=== PATIENT | male | born 1980 | race Caucasian/White ===

== ENCOUNTER 2019-10-19 09:07 | Outpatient (RCR) | payer MEDICAID, SELFPAY ==
[2019-10-19 09:48] VITALS: BP 147/97; PULSE 77; RESP 18; TEMP 37.1; O2SAT 98
== END 2019-11-08 23:59 | disposition home or self-care (01) ==
LOC: GILAB 09:07
PROVIDERS: Family Provider Internal Medicine; Visit Provider Internal Medicine
DX: D64.9 Anemia, unspecified (principal)
CPT/HCPCS: 96365; J1439

== ENCOUNTER 2019-12-21 08:40 | Outpatient (CLI) | payer MEDICAID, SELFPAY ==
[2019-12-21 09:20] VITALS: BP 139/85; PULSE 89; RESP 18; TEMP 37.1; O2SAT 97
[2019-12-21 09:22] VITALS: BMI 36.6
[2019-12-21] MEDS: ferric carboxy (IVPB) 750 MG in sodium chloride 0.9% (100 ml) 100 ML 345 MG IV (09:44)
== END 2019-12-21 08:41 | disposition home or self-care (01) ==
PROVIDERS: Family Provider Internal Medicine; Visit Provider Internal Medicine
DX: D64.9 Anemia, unspecified (principal)
CPT/HCPCS: 96365; J1439

== ENCOUNTER → 2020-06-29 08:53 | Day surgery (SDC) | payer MEDICAID, SELFPAY ==
[2020-06-29 09:21] VITALS: BP 123/80; PULSE 91; RESP 18; TEMP 36.5; O2SAT 98
[2020-06-29] MEDS: ferric carboxy (IVPB) 750 MG in sodium chloride 0.9% (100 ml) 100 ML 345 MG IV (09:34)
== END ==
PROVIDERS: PCP Internal Medicine; Visit Provider Internal Medicine
DX: D50.9 Iron deficiency anemia, unspecified (principal)
CPT/HCPCS: 96365; J1439

== ENCOUNTER → 2020-07-06 13:24 | Day surgery (SDC) | payer MEDICAID, SELFPAY ==
[2020-07-06 13:35] VITALS: BP 108/77; PULSE 76; RESP 18; TEMP 36.9; O2SAT 95
[2020-07-06] MEDS: ferric carboxy (IVPB) 750 MG in sodium chloride 0.9% (100 ml) 100 ML 125 MG IV (14:17)
== END ==
PROVIDERS: PCP Internal Medicine; Visit Provider Internal Medicine
DX: D50.9 Iron deficiency anemia, unspecified (principal)
CPT/HCPCS: 96365; 96366; J1439

== ENCOUNTER 2020-09-07 14:12 | Outpatient (CLI) | payer MEDICAID, SELFPAY ==
--- NOTE | 2020-09-07 14:24 | USCV_ITS ---
CristóbalSlick franco Age: 39 Gender: M : 1980 Exam Date: 09/07/2020 14:25 Ordering Phys: Edward Laird DO Technologist: Kemi De La Paz [place] [facility] [place]ication: SYSTOLIC MURMUR BP: / HR: 88 Rhythm: Sinus Technical Quality: Very technically difficult study MEASUREMENTS (Male / Female) Normal Values 2D ECHO LV Diastolic Diameter PLAX 2.6 cm 4.2 - 5.9 / 3.9 - 5.3 cm LV Systolic Diameter PLAX 2.0 cm LV Chamber Size 3.3 cm IVS Diastolic Thickness 1.8 cm 0.6 - 1.0 / 0.6 - 0.9 cm IVS Systolic Thickness 1.3 cm LVPW Diastolic Thickness 1.6 cm 0.6 - 1.0 / 0.6 - 0.9 cm LVPW Systolic Thickness 1.6 cm RV Chamber Size 2.9 cm LVOT Diameter 2.0 cm LV Ejection Fraction 2D Teich 43.6 % LV Ejection Fraction MOD 2C 68.8 % LV Ejection Fraction 2C AL 69.9 % LA Diameter 3.5 cm LA Width 1.4 cm LA Height 4.5 cm RA Width 3.2 cm RA Height 3.9 cm Aorta at Sinotubular Diameter 3.3 cm M-MODE LV Diastolic Diameter MM 3.4 cm 4.2 - 5.9 / 3.9 - 5.3 cm LV Systolic Diameter MM 1.9 cm LV Ejection Fraction MM Teich 76.1 % IVS Diastolic Thickness MM 1.8 cm 0.6 - 1.0 / 0.6 - 0.9 cm IVS Systolic Thickness MM 2.0 cm LVPW Diastolic Thickness MM 1.5 cm 0.6 - 1.0 / 0.6 - 0.9 cm LVPW Systolic Thickness MM 1.7 cm Aortic Annulus Diameter 2.8 cm LA Ao Ratio MM 1.1 MV E Point Septal Separation 0.3 cm DOPPLER AV Peak Velocity 149.0 cm/s LVOT Peak Velocity 121.3 cm/s AV Area Cont Eq vti 3.0 cm squared AV Area Cont Eq pk 2.6 cm squared MV Area PHT 5.5 cm squared Mitral E to A Ratio 1.3 MV E' Velocity 58.5 cm/s Mitral E to MV E' Ratio 14.2 Mitral E to LV E' Lateral Ratio 18.5 Mitral E to LV E' Septal Ratio 11.7 TR Peak Velocity 162.6 cm/s TR Peak Gradient 10.6 mmHg TR Mean Velocity 163.6 cm/s TR Mean Gradient 12.0 mmHg TR Velocity Time Integral 49.8 cm TV Peak E Velocity 63.0 cm/s Right Atrial Pressure 3.0 mmHg Pulmonary Artery Systolic Pressu 13.6 mmHg PV Peak Velocity 172.0 cm/s RV Acceleration Time 0.2 s RV Ejection Time 0.3 s RV AcT/ET 0.5 FINDINGS Left Ventricle Technically very difficult study with limited visualization of cardiac structures. Normal left ventricular size and grossly normal systolic function. Regional wall motion abnormalities cannot be assessed because of limited visualization.. Diastolic function is normal. Right Ventricle The right ventricle is normal in size and function. Right Atrium The right atrium is normal in size. Left Atrium The left atrium is normal in size. Mitral Valve Structurally normal mitral valve without significant stenosis or prolapse. There is no mitral regurgitation. Aortic Valve Grossly normal. No aortic stenosis is seen. There is no aortic regurgitation. Tricuspid Valve Grossly normal. Mild tricuspid regurgitation. RVSP is 10- 15mmHg. Pulmonic Valve Not well-visualized Pericardium Normal pericardium without effusion. Aorta Normal ascending aorta dimension. CONCLUSIONS This is technically limited study. Limited visualization of cardiac structures. LV systolic function is grossly normal. Normal diastolic function. There is mild tricuspid regurgitation seen. Pulmonic valve not well visualized. Otherwise no significant valvular heart disease. No comparison studies are available. Darryl Pimentel MD (Electronically Signed) Final Date: 17 September 2020 09:35 S
== END 2020-09-07 14:13 | disposition home or self-care (01) ==
LOC: RAD 14:15
PROVIDERS: PCP Internal Medicine; Visit Provider Internal Medicine
DX: R01.1 Cardiac murmur, unspecified (principal)
CPT/HCPCS: 93306

== ENCOUNTER 2020-11-11 00:44 | Emergency (ER) | payer MEDICAID, SELFPAY ==
[2020-11-11 01:14] VITALS: BP 123/84; PULSE 94; RESP 16; TEMP 36.6; O2SAT 95; BMI 36.6
--- NOTE | 2020-11-11 01:40 | CTR_ITS ---
PROCEDURE INFORMATION: Exam: CT Abdomen And Pelvis Without Contrast Exam date and time: 11/11/2020 2:08 AM Age: 40 years old Clinical indication: Abdominal pain; Other: Julio; Prior surgery; Surgery date: 6+ months; Surgery type: Colostomy; Patient HX: C/O b flank/lbp w hematuria; Additional info: Back pain hematuria TECHNIQUE: Imaging protocol: Computed tomography of the abdomen and pelvis without contrast. Radiation optimization: All CT scans at this facility use at least one of these dose optimization techniques: automated exposure control; mA and/or kV adjustment per patient size (includes targeted exams where dose is matched to clinical indication); or iterative reconstruction. COMPARISON: CT abdomen pelvis w con* [id number] 03/16/2018 11:21 PM RADIATION DOSE METRICS: Total DLP (mGy-cm): 1889.98 FINDINGS: Liver: Normal. No mass. Gallbladder and bile ducts: Hyperdensities are seen in the gallbladder neck compatible with tiny gallstones. Pancreas: Normal. No ductal dilation. Spleen: Normal. No splenomegaly. Adrenal glands: Normal. No mass. Kidneys and ureters: There is a 2.5 mm nonobstructing right renal calculus present. Several nonobstructing renal calculi are seen on the left. These measure up to 4 mm in diameter. There is a 2.6 mm minimally obstructing calculus at the level of the left ureteropelvic junction. The there is a 1.7 cm hypoattenuation cystic mass seen within the lower pole of the left kidney. Stomach and bowel: There is a large hiatal hernia present measuring 14 cm in transverse dimension containing the proximal and mid stomach. Status post sigmoidectomy with a colostomy seen in the left anterior flank. Appendix: No evidence of appendicitis. Intraperitoneal space: Unremarkable. No free air. No significant fluid collection. Vasculature: Unremarkable. No abdominal aortic aneurysm. Lymph nodes: Unremarkable. No enlarged lymph nodes. Urinary bladder: Unremarkable as visualized. Reproductive: Unremarkable as visualized. Bones/joints: There is prominent rotoscoliosis of the axial skeleton. Soft tissues: There is a right inguinal hernia containing fat. CT/CT kidney stone [id number] IMPRESSION: 1. Minimally obstructing 2.6 mm calculus at the level of the left ureteropelvic junction. 2. There are bilateral nonobstructing renal calculi. 3. Simple appearing 1.7 cm cyst in the lower pole of the left kidney. No further workup needed. 4. Small right inguinal hernia containing fat 5. Tiny gallstones without evidence of cholecystitis 6. Large hiatal hernia containing the proximal and mid stomach Radiation Dose CTDIVOL = (mGy): DLP = 1889.98 (mGy-cm)
[2020-11-11 02:36] LABS: Basophils % 0.4 %; Eosinophils % 0.6 %; Hematocrit 42.3 % (42.0-52.0); Hemoglobin 13.3 g/dL (11.7-16.6); Lymphocytes # 0.9 10^3/uL (0.8-4.8); Lymphocytes % 12.3 %; Mean Corpuscular HGB Conc 31.4 g/dL (30.0-36.0); Mean Corpuscular Volume 92.4 fL (80-94); Mean Platelet Volume 9.5 fL (7.4-10.4); Monocytes # 0.3 10^3/uL (0.2-0.9); Monocytes % 4.2 %; Neutrophils # 5.68 10^3/uL (1.8-7.7); Neutrophils % 82.2 %; Nucleated Red Blood Cells % 0 %; Platelet Count 278 10^3/cmm (130-400); Red Blood Count 4.58 10^6/uL (4.1-5.3); Red Cell Distribution Width 13.2 % (12.1-15.1); White Blood Count 6.9 10^3/uL (4.0-10.0)
[2020-11-11 02:58] LABS: Alanine Aminotransferase 38 U/L (0-41); Albumin Level 4.1 g/dL (3.5-5.2); Alkaline Phosphatase 71 IU/L (40-130); Anion Gap 11.9 (5-19); Aspartate Amino Transferase 22 U/L (0-40); Blood Urea Nitrogen 9 mg/dL (6-20); C Reactive Protein 8.1 mg/L (0.0-4.9); Calcium 9.8 mg/dL (8.5-10.5); Carbon Dioxide 24 mmol/L (22-29); Chloride 107 mmol/L (98-107); Globulin 3.2 g/dL (1.3-4.6); Glomerular Filtration Rate 535.7 mL/min (90-130); Glucose 133 mg/dL (65-115); Lipase 29 U/L (13-60); Osmolality Calculated 289 mOsm/kg (285-295); Potassium 3.9 mmol/L (3.5-5.1); Sodium 139 mmol/L (136-145); Total Bilirubin 0.3 mg/dL (0.15-1.2); Total Protein 7.3 g/dL (6.6-8.7)
[2020-11-11 03:16] LABS: Specific Gravity, Urine 1.015 (1.005-1.030); Urine Color Yellow (Yellow); pH Urine 5 (5-7)
[2020-11-11 03:17] LABS: Add Urine Microscopic? YES; Bilirubin Urine Neg (Negative); Blood Urine 3+ (Negative); Glucose Urine UA Norm (Normal); Ketones Urine Negative (Negative); Leukocyte Esterase Urine Negative (Negative); Nitrate Urine Negative (Negative); Protein Urine Neg (Negative); Urobilinogen Urine Norm (Negative)
[2020-11-11 03:30] LABS: Add Urine Culture? Yes; Amorphous Sediment Urine 2+ /hpf; Bacteria Urine TRACE /hpf; RBC Urine >100 /hpf (0-2); Squamous Epithelial Cell Urine 0-4 /hpf (0-5); WBC Urine 0-4 /hpf (0-5)
--- NOTE | 2020-11-11 04:12 | ED_ITS ---
HPI - Male Genitourinary General: Chief complaint: Urogenital-Male Stated complaint: lower back pain/blood in urine Time Seen by Provider: 11/11/20 01:57 History of Present Illness: HPI Narrative: 40-year-old wheelchair-bound male presenting with left-sided lower back pain and hematuria. He noticed blood in his urine today, followed by the development of lower back pain. No fever. No vomiting. He was nauseated when the pain was worse. He is essentially pain- free now. MD Complaint: other Onset (ago): hour(s) Duration: constant and now resolved Location: left flank Radiation: left testicle Quality: aching Relieving factors: none Exacerbating factors: none Context: other Associated symptoms: Reports hematuria and nausea; Deny fevers/chills, rash, swelling, urinary retention or vomiting Review of Systems Const: Denies: fever(s) or chills Card: Denies: chest pain or palpitations Resp: Denies: dyspnea, productive cough or non-productive cough GI: Reports: nausea; Denies: vomiting : Reports: hematuria Neuro: Denies: headache(s) or confusion Physical Exam Const: COMMON NORMALS: no acute distress, patient oriented x3 and alert HENMT: COMMON NORMALS: normocephalic HEAD & SCALP: normocephalic Resp: COMMON NORMALS: normal respiratory effort, No use of accessory muscles and clear to auscultation bilaterally AUSCULTATION: clear to auscultation bilaterally Cardio: COMMON NORMALS: regular rate and regular rhythm RATE: regular rate RHYTHM: regular rhythm HEART SOUNDS: Murmur heart sound present GI: COMMON NORMALS: Normal to inspection, nondistended, normoactive bowel sounds present, Soft to palpation and no masses PALPATION: Yes Soft to palpation Back/Pelvis: GENERAL BACK: Yes CVA tenderness CVA tenderness: left (Mild), No mass and No warmth Neuro: COMMON NORMALS: patient oriented x3 SENSORIUM/ORIENTATION: Yes alert Course Vital Signs: Vital signs: Vital Signs Temperature 97.9 F 11/11/20 01:14 Pulse Rate 94 11/11/20 01:14 Respiratory Rate 16 11/11/20 01:14 Blood Pressure 123/84 11/11/20 01:14 Pulse Oximetry 95 11/11/20 01:14 MDM - Male MDM Narrative: Medical decision making narrative: White blood cell count 6.9. Hemoglobin 13.3. CT is reveals a left-sided UPJ 2.6 mm stone with minimal hydronephrosis. His pain is controlled at this point. No evidence of infection on urinalysis. He will be allowed home with antiemetics and pain medication. Lab Data: Labs: Lab Results 11/11/20 11/11/20 11/11/20 Range/Units 02:30 02:30 02:50 WBC 6.9 (4.0-10.0) 10^3/ uL RBC 4.58 (4.1-5.3) 10^6/u L Hgb 13.3 (11.7-16.6) g/dL Hct 42.3 (42.0-52.0) % MCV 92.4 (80-94) fL MCH 29.0 (28.0-34.0) pg MCHC 31.4 (30.0-36.0) g/dL RDW 13.2 (12.1-15.1) % Plt Count 278 (130-400) 10^3/c mm MPV 9.5 (7.4-10.4) fL Neut % (Auto) 82.2 % Lymph % (Auto) 12.3 % Lumpkin % (Auto) 4.2 % Eos % (Auto) 0.6 % Baso % (Auto) 0.4 % Neut # (Auto) 5.68 (1.8-7.7) 10^3/u L Lymph # (Auto) 0.9 (0.8-4.8) 10^3/u L Lumpkin # (Auto) 0.3 (0.2-0.9) 10^3/u L Eos # (Auto) 0.0 (0.0-0.8) 10^3/u L Baso # (Auto) 0.0 (0.0-0.1) 10^3/u L Nucleated RBC % (a uto) 0 % Nucleated RBCs # 0.0 /100WBC Sodium 139 (136-145) mmol/L Potassium 3.9 (3.5-5.1) mmol/L Chloride 107 (98-107) mmol/L Carbon Dioxide 24 (22-29) mmol/L Anion Gap 11.9 (5-19) BUN 9 (6-20) mg/dL Creatinine 0.2 L (0.7-1.2) mg/dL GFR Calculation 535.7 H (90-130) mL/min Glucose 133 H (65-115) mg/dL Calculated Osmolal ity 289 (285-295) mOsm/k g Calcium 9.8 (8.5-10.5) mg/dL Total Bilirubin 0.3 (0.15-1.2) mg/dL AST 22 (0-40) U/L ALT 38 (0-41) U/L Alkaline Phosphata se 71 (40-130) IU/L C-Reactive Protein 8.1 H (0.0-4.9) mg/L Total Protein 7.3 (6.6-8.7) g/dL Albumin 4.1 (3.5-5.2) g/dL Globulin 3.2 (1.3-4.6) g/dL Lipase 29 (13-60) U/L Urine Color Yellow (Yellow) Urine Appearance Sl cloudy A (CLEAR) Urine pH 5 (5-7) Ur Specific Gravit y 1.015 (1.005-1.030) Urine Protein Neg (Negative) Urine Glucose (UA) Norm (Normal) Urine Ketones Negative (Negative) Urine Blood 3+ H (Negative) Urine Nitrate Negative (Negative) Urine Bilirubin Neg (Negative) Urine Urobilinogen Norm (Negative) mg/dL Ur Leukocyte Lorin ase Negative (Negative) Urine RBC >100 H (0-2) /hpf Urine WBC 0-4 H (0-5) /hpf Ur Squamous Epith Cells 0-4 H (0-5) /hpf Amorphous Sediment 2+ /hpf Urine Bacteria Trace (NONE) /hpf Discharge Plan Discharge Patient Disposition: Home Clinical Impression: Ureterolithiasis Condition: Stable Prescriptions: New Zofran 4 mg tablet 4 mg PO Q6H PRN (Reason: nausea and vomiting) Qty: 10 RF: 0 Percocet 7.5-325 mg tablet 1 tab PO Q6H PRN (Reason: pain) Qty: 10 RF: 0 Flomax 0.4 mg capsule 0.4 mg PO DAILY Qty: 10 RF: 0 No Action pantoprazole 20 mg Tablet,Delayed Release (Dr/Ec) 20 mg PO DAILY PRN (Reason: Gastric Reflux) RF: 0 Discharge Orders: Discharge ED (Routine); Ordered 11/11/20 Ordered By: Dave Murphy Referrals: Kevin Chakraborty MD [Physician] - 1-3 days Edward Laird DO [Primary Care Provider] - Discharge Diet: Advance as tolerated Discharge Activity: Increase activity as tolerated Patient Instructions: Kidney Stones (ED), Opioid Safety Activity Restrictions/Additional Instructions: Return for fever greater than 100, worsening pain despite treatment, vomiting liquids or medications, other concerning symptoms. Call the urology clinic Thursday for an appointment this coming week. Coding Level of Care Code ED Medical Assistant Instructor for Malik Richards
[2020-11-11 04:27] VITALS: PULSE 96; RESP 16; O2SAT 95
== END 2020-11-11 04:28 | disposition home or self-care (01) ==
PROVIDERS: Emergency Provider Emergency Medicine; PCP Internal Medicine
DX: N20.1 Calculus of ureter (principal)
CPT/HCPCS: 36415; 74176; 80053; 81001; 83690; 85025; 86140; 87086; 99283

== ENCOUNTER → 2021-08-27 13:24 | Day surgery (SDC) | payer MEDICAID, SELFPAY ==
[2021-08-27 13:51] VITALS: BP 140/68; PULSE 108; RESP 18; TEMP 36.3; O2SAT 97
[2021-08-27] MEDS: iron sucrose 200 MG in sodium chloride 0.9% (100 ml) 100 ML 220 MG IV (14:08)
== END ==
PROVIDERS: PCP Internal Medicine; Visit Provider Internal Medicine
DX: D50.9 Iron deficiency anemia, unspecified (principal)
CPT/HCPCS: 96365; J1756

== ENCOUNTER → 2021-09-10 13:28 | Day surgery (SDC) | payer MEDICAID, SELFPAY ==
[2021-09-10 13:52] VITALS: BP 118/68; PULSE 99; RESP 18; TEMP 36.5; O2SAT 97; BMI 36.6
[2021-09-10] MEDS: iron sucrose 200 MG in sodium chloride 0.9% (100 ml) 100 ML 220 MG IV (13:55)
== END ==
PROVIDERS: PCP Internal Medicine; Visit Provider Internal Medicine
DX: D50.9 Iron deficiency anemia, unspecified (principal)
CPT/HCPCS: 96365; J1756

== ENCOUNTER → 2021-09-17 13:20 | Day surgery (SDC) | payer MEDICAID, SELFPAY ==
[2021-09-17 13:38] VITALS: BP 122/73; PULSE 92; RESP 18; TEMP 36.4; O2SAT 96
[2021-09-17] MEDS: iron sucrose 200 MG in sodium chloride 0.9% (100 ml) 100 ML 220 MG IV (13:52)
== END ==
PROVIDERS: PCP Internal Medicine; Visit Provider Internal Medicine
DX: D50.9 Iron deficiency anemia, unspecified (principal)
CPT/HCPCS: 96365; J1756

== ENCOUNTER → 2021-09-24 13:32 | Day surgery (SDC) | payer MEDICAID, SELFPAY ==
[2021-09-24] MEDS: iron sucrose 200 MG in sodium chloride 0.9% (100 ml) 100 ML 220 MG IV (14:09)
[2021-09-24 14:10] VITALS: BP 120/82; PULSE 87; RESP 18; TEMP 36.3; O2SAT 98
== END ==
PROVIDERS: PCP Internal Medicine; Visit Provider Internal Medicine
DX: D50.9 Iron deficiency anemia, unspecified (principal)
CPT/HCPCS: 96365; J1756

== ENCOUNTER → 2021-10-08 10:19 | Day surgery (SDC) | payer MEDICAID, SELFPAY ==
[2021-10-08] MEDS: iron sucrose 200 MG in sodium chloride 0.9% (100 ml) 100 ML 220 MG IV (10:44)
[2021-10-08 10:46] VITALS: BP 131/70; PULSE 94; RESP 18; TEMP 36.1; O2SAT 97
== END ==
PROVIDERS: PCP Internal Medicine; Visit Provider Internal Medicine
DX: D50.9 Iron deficiency anemia, unspecified (principal)
CPT/HCPCS: 96365; J1756

== ENCOUNTER → 2021-11-20 11:59 | Day surgery (SDC) | payer MEDICAID, SELFPAY ==
[2021-11-20 12:07] VITALS: BP 124/74; PULSE 86; RESP 18; TEMP 36.5; O2SAT 98
[2021-11-20] MEDS: iron sucrose 200 MG in sodium chloride 0.9% (100 ml) 100 ML 220 MG IV (12:25)
== END ==
PROVIDERS: PCP Internal Medicine; Visit Provider Internal Medicine
DX: D50.9 Iron deficiency anemia, unspecified (principal)
CPT/HCPCS: 96365; J1756

== ENCOUNTER → 2021-11-27 12:19 | Day surgery (SDC) | payer MEDICAID, SELFPAY ==
[2021-11-27 12:00] VITALS: BP 120/82; PULSE 81; RESP 18; TEMP 36.6; O2SAT 97
[2021-11-27] MEDS: iron sucrose 200 MG in sodium chloride 0.9% (100 ml) 100 ML 220 MG IV (12:47)
== END ==
PROVIDERS: PCP Internal Medicine; Visit Provider Internal Medicine
DX: D50.9 Iron deficiency anemia, unspecified (principal)
CPT/HCPCS: 96365; J1756

== ENCOUNTER 2021-11-28 14:22 | Outpatient (CLI) | payer MEDICAID, SELFPAY ==
--- NOTE | 2021-11-28 16:43 | ONC CON_ITS ---
Dr. Mercado New Patient Note Patient: Slick Roca Unit #: [id number]: 1980 Dicatated By: Elizabet Mercado M.D.Date of Visit: Nov 28, 2021 Onc MED New Patient/Consult Referring Physician: Faraz CORREA MD History of Present Illness: Mr. Slick Roca, is a 41-year-old male with history of arthrogryposis multiplex congenita, status post colostomy for chronic constipation, and longstanding history of iron deficiency anemia, as per patient he has taken oral iron off and on on many occasion with good response but recently being treated with parenteral iron with Venofer, as per patient in August or September 2021 he received weekly Venofer x5 and then a month after in the first week of November 2021 he was started on weekly Venofer again and planning to give him 5 weekly doses. As lab work-up done on November 08, 2021 showed iron saturation 6%, iron 23 TIBC 366 ferritin 7 but CBC showed hemoglobin was 10.9 g compared to 8.6 g on August 19, 2021, hematocrit 35.4 platelets 310,000 white blood count 5.4 MCV 75.2. Patient has and is tolerating parenteral iron well otherwise Patient said he had EGD and colonoscopy done about 5 6 years ago at that time he was told about hiatal hernia and no evidence of gross bleeding. Patient also has history of colostomy bag placement at age 8-year for chronic constipation. Patient denies any shortness of breath or palpitation at rest denies any weakness or fatigue, as per patient whenever his hemoglobin goes down, usually he sleeps a lot. Because of his congenital abnormalities, patient move around in a motorized wheelchair. Patient has history of dark-colored stools off and on fresh blood in the colostomy bag probably from the colostomy stoma. No night sweats, no recurrent fever. Past Medical History: Mr. Roca's medical history consists of arthrogryposis multiplex congenita, colonic polyps, gastroesophageal reflux disease, and kidney stones. Past Surgical History: Mr. Roca's surgical/procedural history consists of colostomy, Covid vaccine #2 - Moderna in 2020, and Covid vaccine #1 - Moderna in 2020. Medications: Daily Vitamin 1 Tablet Oral daily Allergies: No Known Allergies. Social History: Mr. Roca is and he is a disabled. Mr. Roca has never smoked. He has no history of drinking. Family History: His paternal grandmother is : metastatic lung cancer at age 60. Review Of Symptoms: Review of Systems is not available for this patient. Vital Signs: Performed on Nov 28, 2021 15:25: 0, 0, 36.58 (HIGH), 1.91 sq.m, 62.00 in, 95 % (LOW), 88 /min, 16 /min, 93/47 mm(hg), 98.4 F, and 200 lbs (HIGH). Performance Status: 4 - Completely disabled, totally confined to bed or chair. Cannot carry on any self-care. (ECOG) Physical Examination: ENMT - No mouth sores, no thrush, no jaundice, Respiratory - On limited exam Lungs are clear to auscultation, Cardiovascular - Regular rate and rhythm of heart, Abdomen - Soft, bowel sounds present colostomy site clean, Extremities - Congenital deformities involving upper and lower extremities. Lab/Imaging: Most recent lab results are not available for this patient. Impression: Microcytic, normochromic anemia probably due to iron deficiency due to chronic GI blood loss plus minus malabsorption status post 3 units of packed RBCs on 07/01/2017 with good response now on ferrous sulfate one tablet 3 times a day since 07/02/2017. And B12 injection every weeks ???2. Status post EGD on 07/01/2017 showed large hiatal hernia otherwise no abnormality On Venofer weekly x5 in August or September 2021 and then again started first week of November 2021, tolerating well Congenital skeletal abnormalities wheelchair-bound. Status post colon resection now with colostomy at age 8 due to obstruction. Plan: Discussed with patient regarding his labs from November 08, 2021 which showed significant improvement in his hemoglobin, 10.9 g versus 8.6 g prior to parenteral iron with Venofer. And as per patient second round of 5 weekly dose of Venofer started in first week of November 2021 and he will get total of 5 doses. Etiology of his iron deficiency anemia, is most likely due to chronic blood loss either from colostomy stoma site or upper GI, hiatal hernia or peptic ulcer disease and possibility of small bowel AVMs causing chronic blood loss cannot be ruled out. At this point, we will recommend EGD and colonoscopy via colostomy to rule out underlying malignancy or chronic source of blood loss if unremarkable, will recommend small bowel capsule endoscopy to rule out small bowel AVMs causing chronic blood loss. As patient is receiving parenteral iron with his PMD, we will recommend PMD to get EGD and colonoscopy done, as mentioned above, if normal then consider small bowel capsule endoscopy either in [place], [place] or in [facility]. We will see him on as-needed basis. As with parenteral iron supplements, and management of chronic blood loss, his iron deficiency anemia should resolve. Signed By: Elizabet Mercado M.D. <<Signature on File>>
== END 2021-11-28 14:23 | disposition home or self-care (01) ==
LOC: ONCMED 14:23 → RAD 14:25 → ONCMED 14:51
PROVIDERS: PCP Internal Medicine; Visit Provider Internal Medicine Hematology & Oncology
DX: D50.9 Iron deficiency anemia, unspecified (principal); Z87.19 Personal history of other diseases of the digestive system; K44.9 Diaphragmatic hernia without obstruction or gangrene; Q79.9 Congenital malformation of musculoskeletal system, unspecified; Z99.3 Dependence on wheelchair; Z93.3 Colostomy status
CPT/HCPCS: 85025; 99204

== ENCOUNTER → 2021-12-04 12:17 | Day surgery (SDC) | payer MEDICAID, SELFPAY ==
[2021-12-04] MEDS: iron sucrose 200 MG in sodium chloride 0.9% (100 ml) 100 ML 220 MG IV (12:50)
[2021-12-04 12:51] VITALS: BP 130/73; PULSE 84; RESP 18; TEMP 36.6; O2SAT 97
== END ==
PROVIDERS: PCP Internal Medicine; Visit Provider Internal Medicine
DX: D50.9 Iron deficiency anemia, unspecified (principal)
CPT/HCPCS: 96365; J1756

== ENCOUNTER → 2021-12-11 12:11 | Day surgery (SDC) | payer MEDICAID, SELFPAY ==
[2021-12-11] MEDS: iron sucrose 200 MG in sodium chloride 0.9% (100 ml) 100 ML 220 MG IV (12:35)
[2021-12-11 12:36] VITALS: BP 130/84; PULSE 88; RESP 18; TEMP 36.5; O2SAT 97
== END ==
PROVIDERS: PCP Internal Medicine; Visit Provider Internal Medicine
DX: D50.9 Iron deficiency anemia, unspecified (principal)
CPT/HCPCS: 96365; J1756

== ENCOUNTER → 2021-12-25 13:10 | Day surgery (SDC) | payer MEDICAID, SELFPAY ==
[2021-12-25] MEDS: iron sucrose 200 MG in sodium chloride 0.9% (100 ml) 100 ML 220 MG IV (13:30)
[2021-12-25 13:44] VITALS: BP 111/88; PULSE 98; RESP 18; TEMP 36.8; O2SAT 94
== END ==
PROVIDERS: PCP Internal Medicine; Visit Provider Internal Medicine
DX: D50.9 Iron deficiency anemia, unspecified (principal)
CPT/HCPCS: 96365; J1756

== ENCOUNTER → 2022-02-21 09:02 | Day surgery (SDC) | payer MEDICAID, SELFPAY ==
[2022-02-21 09:21] VITALS: BP 104/75; PULSE 83; RESP 18; TEMP 36.5; O2SAT 97
[2022-02-21] MEDS: ferric carboxy (IVPB) 750 MG in sodium chloride 0.9% (100 ml) 100 ML 345 MG IV (09:22)
== END ==
PROVIDERS: PCP Internal Medicine; Visit Provider Internal Medicine
DX: D50.9 Iron deficiency anemia, unspecified (principal)
CPT/HCPCS: 96365; J1439

== ENCOUNTER → 2022-02-28 09:22 | Day surgery (SDC) | payer MEDICAID, SELFPAY ==
[2022-02-28] MEDS: ferric carboxy (IVPB) 750 MG in sodium chloride 0.9% (100 ml) 100 ML 345 MG IV (09:41)
[2022-02-28 09:42] VITALS: BP 141/87; PULSE 86; RESP 18; TEMP 36.3; O2SAT 96
== END ==
PROVIDERS: PCP Internal Medicine; Visit Provider Internal Medicine
DX: D50.9 Iron deficiency anemia, unspecified (principal)
CPT/HCPCS: 96365; J1439

== ENCOUNTER 2022-11-30 16:13 | Emergency (ER) | payer MEDICAID, SELFPAY ==
[2022-11-30 16:32] VITALS: BP 103/73; PULSE 97; TEMP 37.1; O2SAT 92; BMI 36.6
[2022-11-30 18:04] LABS: Add Urine Microscopic? NO; Charge for UA Resulting for Rev
[2022-11-30 18:08] LABS: Bilirubin Urine Neg (Negative); Blood Urine Neg (Negative); Glucose Urine UA Norm (Normal); Ketones Urine Negative (Negative); Leukocyte Esterase Urine Negative (Negative); Nitrate Urine Negative (Negative); Protein Urine Neg (Negative); Specific Gravity, Urine 1.005 (1.005-1.030); Urine Appearance Clear (CLEAR); Urine Color Yellow (Yellow); Urobilinogen Urine Norm (Negative); pH Urine 7 (5-7)
--- NOTE | 2022-11-30 19:53 | CTR_ITS ---
PROCEDURE INFORMATION: Exam: CT Abdomen And Pelvis Without Contrast Exam date and time: 11/30/2022 8:47 PM Age: 42 years old Clinical indication: Abdominal pain; Flank; Left; Additional info: L flank pain TECHNIQUE: Imaging protocol: Computed tomography of the abdomen and pelvis without contrast. Radiation optimization: All CT scans at this facility use at least one of these dose optimization techniques: automated exposure control; mA and/or kV adjustment per patient size (includes targeted exams where dose is matched to clinical indication); or iterative reconstruction. REPORTING DATA: Count of CT and Cardiac NM exams in prior 12 months: This patient has received 0 known CTs and 0 known cardiac nuclear medicine studies in the 12 months prior to the current study. COMPARISON: CT kidney stone [id number] 11/11/2020 3:16 AM RADIATION DOSE METRICS: Total DLP (mGy-cm): 1324.61 FINDINGS: Lungs: Left lower lobe atelectasis versus infiltrate. Pleural spaces: Trace left pleural effusion. Liver: Hepatic steatosis. Gallbladder and bile ducts: Cholelithiasis. Pancreas: Normal. No ductal dilation. Spleen: Normal. No splenomegaly. Adrenal glands: Normal. No mass. Kidneys and ureters: Left ureterovesical junction 6 mm calculus with moderate hydronephrosis and hydroureter. Bilateral punctate nonobstructing renal calyceal stones. Left kidney cyst similar to prior exam, negative for follow up advised. Left-sided ostomy. Stomach and bowel: Large hiatal hernia. Appendix: No evidence of appendicitis. Intraperitoneal space: Unremarkable. No free air. No significant fluid collection. Vasculature: Unremarkable. No abdominal aortic aneurysm. Lymph nodes: Unremarkable. No enlarged lymph nodes. Urinary bladder: Unremarkable as visualized. Reproductive: Unremarkable as visualized. Bones/joints: Unremarkable. No acute fracture. Soft tissues: Unremarkable. CT/CT kidney stone [id number] IMPRESSION: 1. Left ureterovesical junction 6 mm calculus with moderate hydronephrosis and hydroureter. 2. Bilateral punctate nonobstructing renal calyceal stones. 3. Trace left pleural effusion. 4. Left lower lobe atelectasis versus infiltrate. 5. Hepatic steatosis. 6. Cholelithiasis. 7. Left kidney cyst similar to prior exam, negative for follow up advised. 8. Large hiatal hernia. 9. Left-sided ostomy.
--- NOTE | 2022-11-30 20:52 | ED_ITS ---
HPI - Abdominal Pain General: Chief Complaint: Abdominal Pain Stated Complaint: urinary pain Time Seen by Provider: 11/30/22 19:19 History of Present Illness: 42-year-old wheelchair-bound male presenting with intermittent left flank pain. He has a history of kidney stones. He is in no pain currently, but gets intermittent pain on and off that is quite significant. He gets nauseated with the pain. He has not vomited. He has had some loose stool in his colostomy, that appears darker than normal, but is taking iron supplementation. Course Vital Signs: Vital signs: Vital Signs Temperature 98.7 F 11/30/22 16:32 Pulse Rate 97 11/30/22 16:32 Blood Pressure 103/73 11/30/22 16:32 Pulse Oximetry 92 11/30/22 16:32 Oxygen Delivery Me thod Room Air 11/30/22 16:32 MDM - Abdominal Pain Medical Decision Making 42-year-old male. He has no pain currently, but has been having intermittent left flank pain. His hemoglobin is 7. White blood cell count is 9.5. He states that he was supposed to get an iron infusion set up, but has not heard from his doctor about this. He definitely needs it. He was told that he is on the verge of needing a transfusion. We will ask case management to help coordinate with his PCP and get his iron infusion set up. He needs a repeat CBC in a few days. Acutely, he has a left UVJ 6 mm calculus. There are some hydronephrosis and hydroureter associated. He can likely pass this on his own. We will set him up as an outpatient with urology follow-up in case intervention is needed. He will be prescribed Flomax, Percocet, and Zofran. There is no evidence of infection. He knows to return for worsening Lab Data 11/30/22 21:10 11/30/22 21:10 Labs/Radiology: Radiology Impressions Abdomen/Pelvis CT 11/30/22 19:53 IMPRESSION: 1. Left ureterovesical junction 6 mm calculus with moderate hydronephrosis and hydroureter. 2. Bilateral punctate nonobstructing renal calyceal stones. 3. Trace left pleural effusion. 4. Left lower lobe atelectasis versus infiltrate. 5. Hepatic steatosis. 6. Cholelithiasis. 7. Left kidney cyst similar to prior exam, negative for follow up advised. 8. Large hiatal hernia. 9. Left-sided ostomy. Laboratory Results WBC 9.5 10^3/uL (4.0-10.0) 11/30/22 21:10 RBC 2.96 10^6/uL (4.1-5.3) L 11/30/22 21:10 Hgb 6.9 g/dL (11.7-16.6) L 11/30/22 21:10 Hct 24.4 % (42.0-52.0) L 11/30/22 21:10 MCV 82.4 fl (80-94) 11/30/22 21:10 MCH 23.3 pg (28.0-34.0) L 11/30/22 21:10 MCHC 28.3 g/dL (30.0-36.0) L 11/30/22 21:10 RDW 16.3 % (12.1-15.1) H 11/30/22 21:10 Plt Count 352 10^3/cmm (130-400) 11/30/22 21:10 MPV 10.5 fL (7.4-10.4) H 11/30/22 21:10 Neut % (Auto) 78.4 % 11/30/22 21:10 Lymph % (Auto) 12.3 % 11/30/22 21:10 Waller % (Auto) 6.2 % 11/30/22 21:10 Eos % (Auto) 1.3 % 11/30/22 21:10 Baso % (Auto) 0.5 % 11/30/22 21:10 Neut # (Auto) 7.43 10^3/uL (1.8-7.7) 11/30/22 21:10 Lymph # (Auto) 1.2 10^3/uL (0.8-4.8) 11/30/22 21:10 Waller # (Auto) 0.6 10^3/uL (0.2-0.9) 11/30/22 21:10 Eos # (Auto) 0.1 10^3/uL (0.0-0.8) 11/30/22 21:10 Baso # (Auto) 0.1 10^3/uL (0.0-0.1) 11/30/22 21:10 Nucleated RBC % (auto) 0.4 % 11/30/22 21:10 Nucleated RBCs # 0.0 /100WBC 11/30/22 21:10 Sodium 133 mmol/L (136-145) L 11/30/22 21:10 Potassium 4.0 mmol/L (3.5-5.1) 11/30/22 21:10 Chloride 100 mmol/L (98-107) 11/30/22 21:10 Carbon Dioxide 22 mmol/L (22-29) 11/30/22 21:10 Anion Gap 15.0 (5-19) 11/30/22 21:10 BUN 7 mg/dL (6-20) 11/30/22 21:10 Creatinine 0.4 mg/dL (0.7-1.2) L 11/30/22 21:10 GFR Calculation 238.3 mL/min (90-130) H 11/30/22 21:10 Glucose 76 mg/dL (65-115) 11/30/22 21:10 Calculated Osmolality 273 mOsm/kg (285-295) L 11/30/22 21:10 Calcium 8.8 mg/dL (8.5-10.5) 11/30/22 21:10 Total Bilirubin 0.4 mg/dL (0.15-1.2) 11/30/22 21:10 AST 12 U/L (0-40) 11/30/22 21:10 ALT 16 U/L (0-41) 11/30/22 21:10 Alkaline Phosphatase 67 U/L (40-130) 11/30/22 21:10 Total Protein 7.0 g/dL (6.6-8.7) 11/30/22 21:10 Albumin 3.7 g/dL (3.5-5.2) 11/30/22 21:10 Globulin 3.3 g/dL (1.3-4.6) 11/30/22 21:10 Lipase 24 U/L (13-60) 11/30/22 21:10 Urine Color Yellow (Yellow) 11/30/22 17:15 Urine Appearance Clear (CLEAR) 11/30/22 17:15 Urine pH 7 (5-7) 11/30/22 17:15 Ur Specific [place] 1.005 (1.005-1.030) 11/30/22 17:15 Urine Protein Neg (Negative) 11/30/22 17:15 Urine Glucose (UA) Norm (Normal) 11/30/22 17:15 Urine Ketones Negative (Negative) 11/30/22 17:15 Urine Blood Neg (Negative) 11/30/22 17:15 Urine Nitrate Negative (Negative) 11/30/22 17:15 Urine Bilirubin Neg (Negative) 11/30/22 17:15 Urine Urobilinogen Norm mg/dL (Negative) 11/30/22 17:15 Ur Leukocyte Esterase Negative (Negative) 11/30/22 17:15 Discharge Plan Discharge Patient Disposition: Home Clinical Impression: Ureterolithiasis Anemia Qualifiers: Anemia type: iron deficiency Iron deficiency anemia type: unspecified iron deficiency Qualified Code(s): D50.9 - Iron deficiency anemia, unspecified Condition: Stable Prescriptions: New Percocet 7.5-325 mg tablet 1 tab PO Q6H PRN (Reason: pain) Qty: 10 0RF ondansetron 4 mg film 4 mg PO DAILY PRN (Reason: nausea and vomiting) Qty: 10 0RF Flomax 0.4 mg capsule 0.4 mg PO DAILY Qty: 30 0RF No Action multivitamin Tablet 1 tab PO DAILY ferrous sulfate 325 mg (65 mg iron) Capsule, Extended Release 325 mg PO DAILY Discharge Orders: Discharge ED (Routine); Ordered 11/30/22 Ordered By: Dave Murphy Referrals: Edward Laird DO [Primary Care Provider] - 4-7 days Patient Instructions: Kidney Stones (ED), Anemia (ED), Opioid Safety, Pain Management Activity Restrictions/Additional Instructions: Return to the emergency department for fever greater than 100, vomiting liquids or medications, worsening pain despite treatment, other concerning symptoms. Case management will make an appointment for you with urology for follow-up. This will likely be in [facility]. You should hear from them at the beginning of the week. They will also make an attempt to set up your iron infusion with Dr. Laird. You should hear from her regarding this as well. Coding Level of Care Code ED Mechanical Drafter for Malik Richards
[2022-11-30 21:22] LABS: Basophils # 0.1 10^3/uL (0.0-0.1); Basophils % 0.5 %; Eosinophils # 0.1 10^3/uL (0.0-0.8); Eosinophils % 1.3 %; Hematocrit 24.4 % (42.0-52.0); Hemoglobin 6.9 g/dL (11.7-16.6); Lymphocytes # 1.2 10^3/uL (0.8-4.8); Lymphocytes % 12.3 %; Mean Corpuscular HGB Conc 28.3 g/dL (30.0-36.0); Mean Corpuscular Hemoglobin 23.3 pg (28.0-34.0); Mean Corpuscular Volume 82.4 fl (80-94); Mean Platelet Volume 10.5 fL (7.4-10.4); Monocytes # 0.6 10^3/uL (0.2-0.9); Monocytes % 6.2 %; Neutrophils # 7.43 10^3/uL (1.8-7.7); Neutrophils % 78.4 %; Nucleated Red Blood Cells % 0.4 %; Platelet Count 352 10^3/cmm (130-400); Red Blood Count 2.96 10^6/uL (4.1-5.3); Red Cell Distribution Width 16.3 % (12.1-15.1); White Blood Count 9.5 10^3/uL (4.0-10.0)
--- NOTE | 2022-11-30 21:35 | PC.NURSE ---
REPORT GIVEN TO SUJATA RN ASSUMED CARE.
[2022-11-30 21:40] LABS: Alanine Aminotransferase 16 U/L (0-41); Albumin Level 3.7 g/dL (3.5-5.2); Alkaline Phosphatase 67 U/L (40-130); Aspartate Amino Transferase 12 U/L (0-40); Blood Urea Nitrogen 7 mg/dL (6-20); Calcium 8.8 mg/dL (8.5-10.5); Carbon Dioxide 22 mmol/L (22-29); Chloride 100 mmol/L (98-107); Globulin 3.3 g/dL (1.3-4.6); Glomerular Filtration Rate 238.3 mL/min (90-130); Glucose 76 mg/dL (65-115); Lipase 24 U/L (13-60); Osmolality Calculated 273 mOsm/kg (285-295); Sodium 133 mmol/L (136-145); Total Bilirubin 0.4 mg/dL (0.15-1.2)
[2022-11-30 23:53] VITALS: PULSE 96; RESP 16; O2SAT 93
--- NOTE | 2022-12-01 10:25 | DCPLANNER ---
Addendum entered by Rosario Christopher 12/04/22 08:48: Patient had a follow up appointment scheduled with general surgery - patient did attend appointment. Addendum entered by Rosario Christopher 12/02/22 08:14: Patient has a follow up appointment scheduled for Thursday, December 03, 2022 at 12:[address] Herrera at general surgery. Original Note: table games shift manager had message to schedule a follow up appointment for patient with urology. table games shift manager sent patients information to the front office staff at urology. Patients information will be printed and reviewed. Clinic will call patient with appointment information.
--- NOTE | 2022-12-01 12:06 | DCPLANNER ---
clinical trials manager had message to help coordinate an iron transfusion for patient with his primary care physician. clinical trials manager spoke with [place] Castro [place] [facility] stated that she had put an order in for the patient to get an iron infusion last week here at [facility]. clinical trials manager called the GI lab, spoke with Zoie, who stated that all referral are being sent to [facility] to be scheduled. clinical trials manager called the [facility], spoke with Stephanie, who stated that she was waiting on a prior auth from the primary care physicians office. clinical trials manager called Dr. Castro nurse, and informed her of this.
== END 2022-11-30 23:50 | disposition home or self-care (01) ==
PROVIDERS: Emergency Medicine; Emergency Provider Emergency Medicine; PCP Internal Medicine
DX: N13.2 Hydronephrosis with renal and ureteral calculous obstruction (principal); D50.9 Iron deficiency anemia, unspecified; Z99.3 Dependence on wheelchair
CPT/HCPCS: 36415; 74176; 80053; 81003; 83690; 85025; 99285

== ENCOUNTER 2022-12-03 11:28 | Outpatient (CLI) | payer MEDICAID, SELFPAY ==
--- NOTE | 2022-12-03 11:40 | XR_ITS ---
WS: [id number] Exam: XR KUB [id number] Date/Time of Exam: 12/03/2022 11:40 AM Reason For Exam: stones Comparison 03/04/2018. Calcifications noted in the region of both kidneys apparently representing known renal stones. No bow el obstruction or free air. Angular levoscoliosis of the lumbar spine. Hypoplastic changes in the pel vis and both hips. Surgical clips in the pelvis and lower abdomen. XR/XR KUB [id number] IMPRESSION: 1. Calcifications superimposing the kidneys apparently representing known renal stones. 2. No acute abdominal process. 3. Hypoplastic changes of the pelvis and both hips. Postoperative changes.
== END 2022-12-03 11:29 | disposition home or self-care (01) ==
LOC: RAD 11:32
PROVIDERS: PCP Internal Medicine; Visit Provider Urology
DX: N20.2 Calculus of kidney with calculus of ureter (principal)
CPT/HCPCS: 74018; 81003; 82365; 88300; 99203

== ENCOUNTER 2022-12-05 10:00 | Outpatient (CLI) | payer MEDICAID, SELFPAY ==
[2022-12-05] MEDS: sodium chloride 0.9% 250 ML 75 ML IV (10:53)
[2022-12-05] MEDS: iron sucrose 200 MG in sodium chloride 0.9% (100 ml) 100 ML 220 MG IV (10:53)
[2022-12-05 11:55] VITALS: BP 133/84; PULSE 106; RESP 18; TEMP 36.4; O2SAT 98
[2022-12-05 11:56] VITALS: BP 132/88; PULSE 102; RESP 16; TEMP 36.6
== END 2022-12-05 10:01 | disposition home or self-care (01) ==
LOC: ONCMED 10:01
PROVIDERS: PCP Internal Medicine; Visit Provider Internal Medicine
DX: D50.9 Iron deficiency anemia, unspecified (principal); Z79.899 Other long term (current) drug therapy
CPT/HCPCS: 96365; J1756; J7050

== ENCOUNTER 2022-12-12 10:44 | Emergency (ER) | payer MEDICAID, SELFPAY ==
[2022-12-12] VITALS (9 sets, daily range): BP systolic 102–145; BP diastolic 48–67; PULSE 84–106; RESP 14–16; TEMP 36.6–37.1; O2SAT 95–97
--- NOTE | 2022-12-12 11:08 | PC.PHAR ---
pt states he takes care of his own medications-pt states he takes no rx medications pt states only takes a multivitamin-pt had rx written on 11/30/22 from the er for percocet 7.5-325mg po q6h prn zofran 4mg daily prn and flomax 0.4mg daily pt states he never filled states he passed his kidney stone so no reason to fill rxs
--- NOTE | 2022-12-12 11:12 | XR_ITS ---
WS: [id number] XR chest 1V portable [id number] REASON FOR EXAM: weakness FINDINGS: Limited examination with right forearm across the chest. Difficult to determine presence of lung opac ities. There are probable patchy lung opacities in both lower lungs. Question chronicity. Gas in the stomach projected over the left lower chest.. Previous CT scan demonstrates large diaphrag m defect with herniation of a large amount of fat into the stomach into the posterior left chest. XR/XR chest 1V portable [id number] IMPRESSION: Limited examination with findings as described above.
--- NOTE | 2022-12-12 11:25 | ECG_ITS ---
[facility] Test Date: 2022-12-12 Pat Name: Slick Roca Department: Room: Gender: Male [employer] Apex Developer: : 1980 Requested By: Jeyson Jones Order Number: [id number] [place] MD: Darryl Pimentel M.D. Measurements Intervals [place] Rate: 101 P: 58 WY: 137 QRS: 196 QRSD: 95 T: 78 QT: 371 QTc: 481 Interpretive Statements SINUS TACHYCARDIA INDETERMINATE AXIS PATTERN CONSISTENT WITH PULMONARY DISEASE No previous ECG available for comparison Electronically Signed On 12-12-2022 13:25:45 CDT by Darryl Pimentel M.D. [email or web address]
--- NOTE | 2022-12-12 11:38 | W.ED.SOB ---
HPI - SOB/Dyspnea General: Chief Complaint: Shortness of Breath/Dyspnea Stated Complaint: SOB, Weakness Time Seen by Provider: 12/12/22 11:08 History of Present Illness: HPI Narrative: 42-year-old male presents emergency department chief complaint generalized weakness fatigue and shortness of breath patient presents from the clinic for further assessment management he has a known history of iron deficiency anemia patient is not argumentation he went present to the clinic today for iron infusion however once his doctor evaluated him suggested he needs to go to the ER for possible blood transfusion or additional work-up. Patient reports last night he had progressive shortness of breath and difficulty breathing he reports she had not had no palpitations or chest pain with his shortness of breath. Patient does not endorse any other associated symptoms. Associated symptoms: Deny abdominal pain, chest pain, extremity pain, fever(s), nausea, palpitations or vomiting Review of Systems General: Reports: 10 or more systems reviewed and unremarkable except in HPI and below Const: Reports: fatigue and malaise; Denies: fever(s) or chills Eyes: Denies: change in vision or blurry vision Card: Denies: chest pain or palpitations Resp: Reports: dyspnea GI: Denies: abdominal pain, nausea or vomiting : Denies: flank pain Musc: Denies: extremity pain or extremity swelling Skin/Breast: Denies: rash or pruritus Neuro: Denies: headache(s) Psych: Denies: anxiety or depression Primitivo/Lymph: Denies: easy bleeding All/Imm: Denies: urticaria, throat swelling or facial swelling PFSH ED PFSH: Family History Mother COPD (chronic obstructive pulmonary disease) Social History Smoking and tobacco status: never smoked Alcohol intake: never Household members: spouse Marital status: Current occupational status: disabled Physical Exam Const: COMMON NORMALS: no acute distress, patient oriented x3 and healthy appearing OTHER: Patient appears somewhat pale on exam HENMT: COMMON NORMALS: normocephalic and atraumatic HEAD & SCALP: normocephalic and atraumatic Eye: COMMON NORMALS: Equal, round and reactive pupils present and EOMs intact bilaterally PUPIL: Yes Equal, round and reactive pupils present Neck/C-Spine: COMMON NORMALS: full ROM, supple and no JVD Lymph: LYMPHATIC: no lymphadenopathy noted Chest: COMMONS NORMALS: normal inspection of the chest and normal palpation of entire chest wall Resp: COMMON NORMALS: normal respiratory effort, No retractions and clear to auscultation bilaterally EFFORT & INSPECTION: Yes able to speak in complete sentences and Yes symmetric chest movement AUSCULTATION: clear to auscultation bilaterally Cardio: COMMON NORMALS: no JVD, regular rate and regular rhythm RATE: regular rate RHYTHM: regular rhythm OTHER: Systolic murmur appreciated GI: COMMON NORMALS: Normal to inspection, nondistended, normoactive bowel sounds present, Soft to palpation and non-tender INSPECTION: Yes normal to inspection PALPATION: Yes Soft to palpation : COMMON NORMALS: Yes no CVA tenderness BLADDER/KIDNEY EXAM: Yes no CVA tenderness Back/Pelvis: COMMON NORMALS: no CVA tenderness Extremity: COMMON NORMALS: normal to inspection and full ROM Neuro: COMMON NORMALS: patient oriented x3, CN's II-XII intact bilaterally, moves all extremities and no focal motor deficits Psych: COMMON NORMALS: mental status grossly normal, Normal thought process present, cooperative and normal affect THOUGHT PROCESS: Normal thought process present Skin: COMMON NORMALS: no rashes or lesions noted GENERAL SKIN EXAM: no rashes or lesions noted Course Vital Signs: Vital signs: Vital Signs Temperature 98.2 F 12/12/22 15:26 Pulse Rate 88 12/12/22 17:16 Respiratory Rate 16 12/12/22 15:26 Blood Pressure 117/61 12/12/22 17:16 Pulse Oximetry 96 12/12/22 17:16 Oxygen Delivery Me thod Room Air 12/12/22 15:00 MDM - SOB/Dyspnea Medical Decision Making Due to the patient's symptoms and his underlying concerns of acute on chronic anemia IV will be established basic lab work imaging will be obtained underlying concerns of possible need for blood transfusions prominent we will also continue to further follow-up the patient's shortness of breath concerns. Other unrelated issues such as cardiac or pulmonary. Your lab work imaging came back reassuring patient was improved after 2 units of packed red blood cells advised for the follow-up primary care 3 to 5 days for repeat lab work and imaging which patient advised return the interim if any of the symptoms persist or worse Lab Data 12/12/22 11:43 12/12/22 11:43 Labs/Radiology: Radiology Impressions Chest X-Ray 12/12/22 11:12 IMPRESSION: Limited examination with findings as described above. Laboratory Results WBC 6.5 10^3/uL (4.0-10.0) 12/12/22 11:43 RBC 2.69 10^6/uL (4.1-5.3) L 12/12/22 11:43 Hgb 5.8 g/dL (11.7-16.6) L* 12/12/22 11:43 Hct 22.6 % (42.0-52.0) L 12/12/22 11:43 MCV 84.0 fl (80-94) 12/12/22 11:43 MCH 21.6 pg (28.0-34.0) L 12/12/22 11:43 MCHC 25.7 g/dL (30.0-36.0) L 12/12/22 11:43 RDW 18.8 % (12.1-15.1) H 12/12/22 11:43 Plt Count 357 10^3/cmm (130-400) 12/12/22 11:43 MPV 10.4 fL (7.4-10.4) 12/12/22 11:43 Neut % (Auto) 82.0 % 12/12/22 11:43 Lymph % (Auto) 11.6 % 12/12/22 11:43 [place] % (Auto) 4.7 % 12/12/22 11:43 Eos % (Auto) 0.9 % 12/12/22 11:43 Baso % (Auto) 0.3 % 12/12/22 11:43 Neut # (Auto) 5.35 10^3/uL (1.8-7.7) 12/12/22 11:43 Lymph # (Auto) 0.8 10^3/uL (0.8-4.8) 12/12/22 11:43 [place]aine # (Auto) 0.3 10^3/uL (0.2-0.9) 12/12/22 11:43 Eos # (Auto) 0.1 10^3/uL (0.0-0.8) 12/12/22 11:43 Baso # (Auto) 0.0 10^3/uL (0.0-0.1) 12/12/22 11:43 Nucleated RBC % (auto) 0.9 % 12/12/22 11:43 Nucleated RBCs # 0.1 /100WBC 12/12/22 11:43 PT 14.10 SECONDS (12.1-14.9) 12/12/22 11:43 INR 1.05 (0.8-1.2) 12/12/22 11:43 Sodium 139 mmol/L (136-145) 12/12/22 11:43 Potassium 3.6 mmol/L (3.5-5.1) 12/12/22 11:43 Chloride 104 mmol/L (98-107) 12/12/22 11:43 Carbon Dioxide 23 mmol/L (22-29) 12/12/22 11:43 Anion Gap 15.6 (5-19) 12/12/22 11:43 BUN 8 mg/dL (6-20) 12/12/22 11:43 Creatinine 0.2 mg/dL (0.7-1.2) L 12/12/22 11:43 GFR Calculation 530.2 mL/min (90-130) H 12/12/22 11:43 Glucose 134 mg/dL (65-115) H 12/12/22 11:43 Calculated Osmolality 288 mOsm/kg (285-295) 12/12/22 11:43 Calcium 9.0 mg/dL (8.5-10.5) 12/12/22 11:43 Total Bilirubin 0.5 mg/dL (0.15-1.2) 12/12/22 11:43 AST 12 U/L (0-40) 12/12/22 11:43 ALT 12 U/L (0-41) 12/12/22 11:43 Alkaline Phosphatase 66 U/L (40-130) 12/12/22 11:43 Troponin T Gen 5 ng/L 12 ng/L (0-15) 12/12/22 11:43 NT-Pro-B Natriuret Pep 365 pg/mL (0-125) H 12/12/22 11:43 Total Protein 6.8 g/dL (6.6-8.7) 12/12/22 11:43 Albumin 3.6 g/dL (3.5-5.2) 12/12/22 11:43 Globulin 3.2 g/dL (1.3-4.6) 12/12/22 11:43 Blood Type A Positive 12/12/22 11:43 Rho(D) Type Positive 12/12/22 11:43 Antibody Screen Negative 12/12/22 11:43 Crossmatch See Detail 12/12/22 11:43 Discharge Plan Discharge Patient Disposition: Home Clinical Impression: Chronic iron deficiency anemia Condition: Stable Prescriptions: No Action multivitamin Tablet 1 tab PO DAILY Discharge Orders: Discharge ED (Routine); Ordered 12/12/22 Ordered By: Jeyson Jones Referrals: Edward Laird DO [Primary Care Provider] - 1-3 days (for repeat labwork and blood count) Discharge Diet: Regular Discharge Activity: Increase activity as tolerated Patient Instructions: Anemia, Iron Rich Diet (ED), Anemia (ED) Activity Restrictions/Additional Instructions: Please further follow-up with your primary care doctor on Thursday for repeat lab work and imaging, please continue taking your iron supplementation as previously prescribed and please return the interim if any of her symptoms persist or worse. Coding Level of Care Code ED Crusher [employer] Mica for Malik Richards
[2022-12-12 11:52] LABS: Basophils % 0.3 %; Eosinophils # 0.1 10^3/uL (0.0-0.8); Eosinophils % 0.9 %; Hematocrit 22.6 % (42.0-52.0); Lymphocytes # 0.8 10^3/uL (0.8-4.8); Lymphocytes % 11.6 %; Mean Corpuscular HGB Conc 25.7 g/dL (30.0-36.0); Mean Corpuscular Hemoglobin 21.6 pg (28.0-34.0); Mean Platelet Volume 10.4 fL (7.4-10.4); Monocytes # 0.3 10^3/uL (0.2-0.9); Monocytes % 4.7 %; Neutrophils # 5.35 10^3/uL (1.8-7.7); Nucleated Red Blood Cells # 0.1 /100WBC; Nucleated Red Blood Cells % 0.9 %; Platelet Count 357 10^3/cmm (130-400); Red Blood Count 2.69 10^6/uL (4.1-5.3); Red Cell Distribution Width 18.8 % (12.1-15.1); White Blood Count 6.5 10^3/uL (4.0-10.0)
[2022-12-12 12:01] LABS: Hemoglobin 5.8 g/dL (11.7-16.6)
[2022-12-12 12:05] LABS: INR 1.05 (0.8-1.2)
[2022-12-12 12:14] LABS: Troponin T (5th) Once 12 ng/L (0-15)
[2022-12-12 12:46] LABS: Alanine Aminotransferase 12 U/L (0-41); Albumin Level 3.6 g/dL (3.5-5.2); Alkaline Phosphatase 66 U/L (40-130); Anion Gap 15.6 (5-19); Aspartate Amino Transferase 12 U/L (0-40); Blood Urea Nitrogen 8 mg/dL (6-20); Carbon Dioxide 23 mmol/L (22-29); Chloride 104 mmol/L (98-107); Globulin 3.2 g/dL (1.3-4.6); Glomerular Filtration Rate 530.2 mL/min (90-130); Glucose 134 mg/dL (65-115); NT Pro B Type Natriuretic Pept 365 pg/mL (0-125); Osmolality Calculated 288 mOsm/kg (285-295); Potassium 3.6 mmol/L (3.5-5.1); Sodium 139 mmol/L (136-145); Total Bilirubin 0.5 mg/dL (0.15-1.2); Total Protein 6.8 g/dL (6.6-8.7)
== END 2022-12-12 17:17 | disposition home or self-care (01) ==
PROVIDERS: Emergency Provider Emergency Medicine; PCP Internal Medicine
DX: D50.8 Other iron deficiency anemias (principal)
CPT/HCPCS: 36415; 36430; 71045; 80053; 83880; 84484; 85025; 85610; 86850; 86900; 86920; 93005; 99285; P9016

== ENCOUNTER 2023-01-02 10:30 | Oncology outpatient (recurring) (ONCR) | payer MEDICAID, SELFPAY ==
--- NOTE | 2022-12-12 12:30 | PC.NURSE ---
Patient arrived for infusion, complaining of shortness of breathe dizziness and overwhelming fatigue. Skin pale with diaphoresis. After speaking with patient he wanted to report to ER for evaluation.
[2022-12-26] MEDS: iron sucrose 200 MG in sodium chloride 0.9% (100 ml) 100 ML 220 MG IV (11:15)
[2023-01-02] MEDS: iron sucrose 200 MG in sodium chloride 0.9% (100 ml) 100 ML 220 MG IV (11:13)
[2023-01-02 11:43] VITALS: PULSE 97; RESP 18; TEMP 36.6; O2SAT 98
[2023-01-02 12:00] VITALS: PULSE 96; RESP 17; TEMP 36.6; O2SAT 98
== END 2023-01-07 23:59 | disposition home or self-care (01) ==
PROVIDERS: PCP Internal Medicine; Visit Provider Internal Medicine
DX: D50.9 Iron deficiency anemia, unspecified (principal)
CPT/HCPCS: 96365; 96374; J1756

== ENCOUNTER 2023-01-19 15:30 | Oncology outpatient (recurring) (ONCR) | payer MEDICAID, SELFPAY ==
[2023-01-09] MEDS: iron sucrose 200 MG in sodium chloride 0.9% (100 ml) 100 ML 220 MG IV (11:30)
[2023-01-09] MEDS: sodium chloride 0.9% 250 ML 100 ML IV (11:30)
[2023-01-09 12:15] VITALS: BP 150/94; PULSE 103; TEMP 37.2; O2SAT 93
[2023-01-19] MEDS: sodium chloride 0.9% 250 ML 75 ML IV (15:50)
[2023-01-19 15:51] VITALS: BP 110/78; PULSE 73; RESP 16; TEMP 36.7; O2SAT 97
[2023-01-19] MEDS: iron sucrose 200 MG in sodium chloride 0.9% (100 ml) 100 ML 220 MG IV (15:51)
[2023-01-19 16:43] VITALS: BP 117/78; PULSE 96; RESP 18; TEMP 36.8; O2SAT 98
== END 2023-02-06 23:59 | disposition home or self-care (01) ==
PROVIDERS: PCP Internal Medicine; Visit Provider Internal Medicine
DX: D50.9 Iron deficiency anemia, unspecified (principal)
CPT/HCPCS: 96365; J1756; J7050

== ENCOUNTER → 2023-01-26 13:01 | Outpatient (BNVA) | payer MEDICAID, SELFPAY | PROVIDERS: PCP Internal Medicine; Referring Provider Internal Medicine; Visit Provider Nurse Practitioner Family | DX: L82.1 Other seborrheic keratosis (principal); L91.8 Other hypertrophic disorders of the skin; L30.4 Erythema intertrigo; L57.8 Other skin changes due to chronic exposure to nonionizing radiation; D22.5 Melanocytic nevi of trunk; Z71.89 Other specified counseling; L85.3 Xerosis cutis; Q68.8 Other specified congenital musculoskeletal deformities | CPT/HCPCS: 99204 ==

== ENCOUNTER 2023-04-16 14:04 | Oncology outpatient (recurring) (ONCR) | payer MEDICAID, SELFPAY ==
[2023-04-16] MEDS: ferric gluconate 125 MG in sodium chloride 0.9% (100 ml) 100 ML 110 MG IV (15:50)
[2023-04-16] MEDS: sodium chloride 0.9% 250 ML 75 ML IV (15:51)
[2023-04-16 17:20] VITALS: BP 134/79; PULSE 88; RESP 20; TEMP 36.1; O2SAT 99
== END 2023-05-09 23:59 | disposition home or self-care (01) ==
LOC: ONCMED 14:04
PROVIDERS: PCP Internal Medicine; Visit Provider Internal Medicine
DX: D50.9 Iron deficiency anemia, unspecified (principal)
CPT/HCPCS: 96365; J2916; J7050

== ENCOUNTER 2023-07-30 09:01 | Oncology outpatient (recurring) (ONCR) | payer MEDICAID, SELFPAY ==
[2023-07-14 13:18] LABS: Reticulocyte % 2.1 % (0.5-2.0)
[2023-07-14 13:36] LABS: Alanine Aminotransferase 16 U/L (0-41); Albumin Level 3.9 g/dL (3.5-5.2); Alkaline Phosphatase 82 U/L (40-130); Aspartate Amino Transferase 13 U/L (0-40); Blood Urea Nitrogen 7 mg/dL (6-20); Calcium 9.5 mg/dL (8.5-10.5); Carbon Dioxide 22 mmol/L (22-29); Chloride 105 mmol/L (98-107); Ferritin 8 ng/mL (30-400); Globulin 3.6 g/dL (1.3-4.6); Glomerular Filtration Rate 184.2 mL/min (90-130); Glucose 107 mg/dL (65-115); Iron 14 ug/dL (59-158); Lactate Dehydrogenase 117 U/L (135-225); Osmolality Calculated 280 mOsm/kg (285-295); Percent Saturation 4.4 % (20-50); Sodium 136 mmol/L (136-145); Total Bilirubin 0.2 mg/dL (0.15-1.2); Total Iron Binding Capacity 318 mcg/dl; Total Protein 7.5 g/dL (6.6-8.7); Unsaturated Iron Binding 304 ug/dL (112-347)
[2023-07-14 13:43] LABS: Basophils % 0.6 %; Eosinophils # 0.1 10^3/uL (0.0-0.8); Eosinophils % 1.4 %; Hematocrit 32.4 % (37-53); Lymphocytes # 1.1 10^3/uL (0.8-4.8); Lymphocytes % 15.1 %; Mean Corpuscular HGB Conc 28.7 g/dL (30-55); Mean Corpuscular Hemoglobin 22.2 pg (27-33); Mean Corpuscular Volume 77.3 fl (82-101); Mean Platelet Volume 10.1 fL (7.4-10.4); Monocytes # 0.5 10^3/uL (0.2-0.9); Monocytes % 6.7 %; Neutrophils # 5.34 10^3/uL (1.8-7.7); Neutrophils % 76.1 %; Nucleated Red Blood Cells % 0 %; Platelet Count 325 10^3/cmm (157-399); Red Blood Count 4.19 10^6/uL (3.85-5.65); Red Cell Distribution Width 17.1 % (12.1-15.1); White Blood Count 7.02 10^3/uL (3.29-11.43)
[2023-07-14 13:51] LABS: Vitamin B12 295 pg/mL (232-1245)
[2023-07-14 14:03] LABS: Folate Level 8.7 ng/mL (4.5-32.2)
[2023-07-16 09:19] VITALS: BP 129/76; PULSE 67; RESP 16; TEMP 35.9; O2SAT 96
[2023-07-16] MEDS: ferumoxytol (NON-ESRD) 510 MG in sodium chloride 0.9% (100 ml) 100 ML 351 MG IV (09:39)
[2023-07-16 10:08] VITALS: BP 129/74; PULSE 93; RESP 18; TEMP 36.6; O2SAT 93
[2023-07-30 09:39] VITALS: BP 98/52; PULSE 84; RESP 18; TEMP 36.6; O2SAT 94
[2023-07-30] MEDS: ferumoxytol (NON-ESRD) 510 MG in sodium chloride 0.9% (100 ml) 100 ML 351 MG IV (09:40)
[2023-07-30 10:20] VITALS: BP 95/68; PULSE 59; RESP 17; TEMP 36.6; O2SAT 97
== END 2023-08-09 23:59 | disposition home or self-care (01) ==
PROVIDERS: Internal Medicine Hematology & Oncology; PCP Internal Medicine; Visit Provider Internal Medicine
DX: D50.9 Iron deficiency anemia, unspecified (principal); Z53.9 Procedure and treatment not carried out, unspecified reason
CPT/HCPCS: 36415; 80053; 82607; 82728; 82746; 83010; 83540; 83550; 83615; 85025; 85045; 86850; 86900; 96365; 99213; Q0138

== ENCOUNTER 2023-09-08 10:09 | Oncology outpatient (recurring) (ONCR) | payer MEDICAID, SELFPAY ==
[2023-09-08 10:59] LABS: Basophils % 0.6 %; Eosinophils # 0.1 10^3/uL (0.0-0.8); Eosinophils % 2.3 %; Hematocrit 38.5 % (37-53); Lymphocytes # 1.2 10^3/uL (0.8-4.8); Lymphocytes % 22.7 %; Mean Corpuscular HGB Conc 31.2 g/dL (30-55); Mean Corpuscular Hemoglobin 26.5 pg (27-33); Mean Corpuscular Volume 85.2 fl (82-101); Mean Platelet Volume 9.3 fL (7.4-10.4); Monocytes # 0.3 10^3/uL (0.2-0.9); Neutrophils # 3.57 10^3/uL (1.8-7.7); Neutrophils % 69.2 %; Nucleated Red Blood Cells % 0 %; Platelet Count 309 10^3/cmm (157-399); Red Blood Count 4.52 10^6/uL (3.85-5.65); Red Cell Distribution Width 17.9 % (12.1-15.1); White Blood Count 5.16 10^3/uL (3.29-11.43)
[2023-09-08 11:16] LABS: Ferritin 29 ng/mL (30-400); Iron 39 ug/dL (59-158); Percent Saturation 15.7 % (20-50); Total Iron Binding Capacity 247 mcg/dl; Unsaturated Iron Binding 208 ug/dL (112-347)
[2023-09-08] MEDS: ferumoxytol (NON-ESRD) 510 MG in sodium chloride 0.9% (100 ml) 100 ML 351 MG IV (12:29)
== END 2023-09-09 23:59 | disposition home or self-care (01) ==
PROVIDERS: Nurse Practitioner Family; PCP Internal Medicine; Visit Provider Internal Medicine
DX: D50.9 Iron deficiency anemia, unspecified (principal); Z79.899 Other long term (current) drug therapy
CPT/HCPCS: 36415; 82728; 83540; 83550; 85025; 96365; 99214; Q0138

== ENCOUNTER 2023-10-01 00:05 | Emergency (ER) | payer MEDICAID, SELFPAY ==
--- NOTE | 2023-10-01 00:10 | ED_ITS ---
HPI - Abdominal Pain 2 General: Chief Complaint: Urogenital-Male Stated Complaint: Abd pain Time Seen by Provider: 10/01/23 00:09 History of Present Illness: 43-year-old male presents the emergency department with complaints of left flank/kidney pain that radiates around to his left abdomen. He states this has been ongoing for 2 weeks and tonight it became much worse the pain he states is a 10 out of 10 sharp and stabbing. He states he does have a history of kidney stones and this feels very similar to the kidney stones in the past. He states he has seen a urologist at [facility] in [facility] previously. He states he did have a single episode of nausea and vomiting earlier this evening. He denies fevers chills or night sweats. He is a wheelchair-bound patient and is scheduled to have a port placed tomorrow. Associated Symptoms: Reports nausea and vomiting Review of Systems 2 General: Reports: 10 or more systems reviewed and unremarkable except in HPI and below GI: Reports: abdominal pain, nausea and vomiting Musc: Reports: back pain PFS ED 2 PFSH: Medical History (Updated 10/01/23 @ 02:16 by Raheem Chung MD) History of sigmoidoscopy (2018) GERD (gastroesophageal reflux disease) Arthrogryposis multiplex congenita Recurrent nephrolithiasis CARINA (iron deficiency anemia) Surgical History (Updated 09/08/23 @ 14:34 by Edward Hill MD) History of colectomy History of colectomy, partial small bowel resection, and colostomy placement History of esophagogastroduodenoscopy (EGD) (2017) Family History Mother COPD (chronic obstructive pulmonary disease) Social History Smoking and tobacco/nicotine status: never used tobacco/nicotine Alcohol intake: never Household members: spouse Marital status: Current occupational status: disabled Physical Exam 2 Narrative: EXAM NARRATIVE: Constitutional: the patient appears well nourished and with normal development. Vital signs reviewed as documented. HENMT: Normocephalic, atraumatic. External ears normal appearance without drainage. Nose without drainage, normal appearance. Mucus membranes moist. Neck is supple, No jugular venous distension, trachea is midline, no appreciable carotid bruits. No lymphadenopathy. No meningeal signs. Flexion, extension and lateral rotation is without pain. Eyes: Pupils are equal, round, reactive to light and accommodation. No scleral icterus. Extra-ocular movement are intact. Thorax is symmetrical and with equal rise and fall with respirations. Resp: Lungs are clear to auscultation. No wheezes, rales, crackles or ronchi at present. Cardio: Regular rate and rhythm. Positive S1, S2. No appreciable murmurs, rubs or gallops. GI: Abdominal exam reveals normal bowel sounds to all quadrants. No organomegaly. No obvious palpable masses noted. No hepatomegally appreciated. Soft, non-tender to palpation. Extremity: Extremities are non-edematous and both femoral and pedal pulses are 2+ and equal bilaterally. Moves all extremities well, sensation in all extremities. Neuro: Alert and oriented x4, person, place, time and situation. Psych: Cooperative, calm, normal thought process, appropriate judgment. Skin: No lesions, rashes. No gross abnormalities noted. Back: Symmetrical, Left CVA tenderness Course 2 Vital Signs: Vital signs: Vital Signs Temperature 97.8 F 10/01/23 02:36 Pulse Rate 79 10/01/23 02:36 Respiratory Rate 16 10/01/23 02:36 Blood Pressure 139/97 10/01/23 02:36 Pulse Oximetry 95 10/01/23 02:36 Oxygen Delivery Me thod Room Air 10/01/23 00:12 MDM - Abdominal Pain Medical Decision Making I will obtain a CBC and CMP as well as a urinalysis and provide the patient with Zofran for his nausea Toradol for his pain and a CT scan of the abdomen pelvis renal stone protocol to rule out renal calculi. I reviewed the report of the CT scan as well as the images of the CT scan it does appear that he has a 6 mm obstructing stone in the left side I will provide him Flomax as well as pain medication and antiemetic and have him follow-up with his urologist at [facility]. Medical Records I reviewed the patient's medical records. Lab Data I reviewed the patient's lab results. 10/01/23 01:01 10/01/23 01:01 Labs/Radiology: Radiology Impressions Abdomen/Pelvis CT 10/01/23 01:06 IMPRESSION: There is an obstructing 6 mm stone in the distal left ureter with upstream hydroureter and mild hydronephrosis. Laboratory Results WBC 8.56 10^3/uL (3.29-11.43) 10/01/23 01:01 RBC 4.77 10^6/uL (3.85-5.65) 10/01/23 01:01 Hgb 13.40 g/dL (11.27-16.99) 10/01/23 01:01 Hct 41.1 % (37-53) 10/01/23 01:01 MCV 86.2 fl (82-101) 10/01/23 01:01 MCH 28.1 pg (27-33) 10/01/23 01:01 MCHC 32.6 g/dL (30-55) 10/01/23 01:01 RDW 15.8 % (12.1-15.1) H 10/01/23 01:01 Plt Count 292 10^3/cmm (157-399) 10/01/23 01:01 MPV 9.1 fL (7.4-10.4) 10/01/23 01:01 Neut % (Auto) 83.7 % 10/01/23 01:01 Lymph % (Auto) 9.7 % 10/01/23 01:01 [place] % (Auto) 4.6 % 10/01/23 01:01 Eos % (Auto) 1.2 % 10/01/23 01:01 Baso % (Auto) 0.4 % 10/01/23 01:01 Neut # (Auto) 7.18 10^3/uL (1.8-7.7) 10/01/23 01:01 Lymph # (Auto) 0.8 10^3/uL (0.8-4.8) 10/01/23 01:01 [place] # (Auto) 0.4 10^3/uL (0.2-0.9) 10/01/23 01:01 Eos # (Auto) 0.1 10^3/uL (0.0-0.8) 10/01/23 01:01 Baso # (Auto) 0.0 10^3/uL (0.0-0.1) 10/01/23 01:01 Nucleated RBC % (auto) 0 % 10/01/23 01:01 Nucleated RBCs # 0.0 /100WBC 10/01/23 01:01 Sodium 134 mmol/L (136-145) L 10/01/23 01:01 Potassium 4.2 mmol/L (3.5-5.1) 10/01/23 01:01 Chloride 100 mmol/L (98-107) 10/01/23 01:01 Carbon Dioxide 24 mmol/L (22-29) 10/01/23 01:01 Anion Gap 14.2 (5-19) 10/01/23 01:01 BUN 7 mg/dL (6-20) 10/01/23 01:01 Creatinine 0.3 mg/dL (0.7-1.2) L 10/01/23 01:01 GFR Calculation 330.4 mL/min (90-130) H 10/01/23 01:01 Glucose 96 mg/dL (65-115) 10/01/23 01:01 Calculated Osmolality 276 mOsm/kg (285-295) L 10/01/23 01:01 Calcium 9.0 mg/dL (8.5-10.5) 10/01/23 01:01 Total Bilirubin 0.3 mg/dL (0.15-1.2) 10/01/23 01:01 AST 14 U/L (0-40) 10/01/23 01:01 ALT 21 U/L (0-41) 10/01/23 01:01 Alkaline Phosphatase 93 U/L (40-130) 10/01/23 01:01 Total Protein 7.8 g/dL (6.6-8.7) 10/01/23 01:01 Albumin 3.8 g/dL (3.5-5.2) 10/01/23 01:01 Globulin 4.0 g/dL (1.3-4.6) 10/01/23 01:01 Urine Color Light yellow (Yellow) 10/01/23 00:33 Urine Appearance Clear (CLEAR) 10/01/23 00:33 Urine pH 7 (5-7) 10/01/23 00:33 Ur Specific [place] 1.010 (1.005-1.030) 10/01/23 00:33 Urine Protein Neg (Negative) 10/01/23 00:33 Urine Glucose (UA) Norm (Normal) 10/01/23 00:33 Urine Ketones Negative (Negative) 10/01/23 00:33 Urine Blood Neg (Negative) 10/01/23 00:33 Urine Nitrate Negative (Negative) 10/01/23 00:33 Urine Bilirubin Neg (Negative) 10/01/23 00:33 Urine Urobilinogen Neg mg/dL (Negative) 10/01/23 00:33 Ur Leukocyte Esterase Negative (Negative) 10/01/23 00:33 All radiology interpretation(s) finalized by discharge Discharge Plan Discharge Patient Disposition: Home Clinical Impression: Recurrent nephrolithiasis, Abdominal wall pain in left flank Condition: Stable Prescriptions: New Flomax 0.4 mg capsule 0.4 mg PO DAILY Qty: 30 0RF hydrocodone-acetaminophen 5-325 mg tablet 1 tab PO Q8H PRN (Reason: pain) Qty: 14 0RF ondansetron HCl 4 mg tablet 4 mg PO Q12H 5 Days Qty: 10 0RF No Action multivitamin Tablet 1 tab PO DAILY Discharge Orders: Discharge ED (Routine); Ordered 10/01/23 Ordered By: Raheem Chung Referrals: Edward Laird, [Primary Care Provider] - Discharge Diet: Usual diet Discharge Activity: Resume usual activity Patient Instructions: Abdominal Pain (ED), Opioid Safety, Pain Management Activity Restrictions/Additional Instructions: Activity Restrictions/Additional Instructions: Thank you for choosing [facility] for your healthcare needs today. Please realize that you were seen in the Emergency Department and that we are providing you with an emergency medical screening exam and this may not be a complete and all inclusive of all the testing and or medical work-up that you may need to determine your ailment or severity of your illness. It is very important that you follow-up as instructed with your Primary care provider or Specialist for additional evaluation and to discuss your medical treatment plan. You may return to the Emergency Department should you have concerns or if your condition changes or worsens in any way. Call on the next business day to make your follow-up appointment [facility] [address] [place] [id number] Phone--[phone] Coding Level of Care Code ED Local [employer] Truck [employer] for Malik Richards
[2023-10-01 00:12] VITALS: BP 139/97; PULSE 79; RESP 18; TEMP 36.6; O2SAT 100; BMI 36.6
[2023-10-01] MEDS: ketorolac 60 mg/2 mL INJ IM (00:42)
[2023-10-01 00:46] LABS: Add Urine Microscopic? NO; Charge for UA Resulting for Rev
[2023-10-01 00:50] LABS: Bilirubin Urine Neg (Negative); Blood Urine Neg (Negative); Glucose Urine UA Norm (Normal); Ketones Urine Negative (Negative); Leukocyte Esterase Urine Negative (Negative); Nitrate Urine Negative (Negative); Protein Urine Neg (Negative); Urine Appearance Clear (CLEAR); Urine Color Light yellow (Yellow); Urobilinogen Urine Neg (Negative); pH Urine 7 (5-7)
[2023-10-01 00:58] VITALS: BP 139/97; PULSE 79; RESP 16; O2SAT 95
--- NOTE | 2023-10-01 01:06 | CTR_ITS ---
PROCEDURE INFORMATION: Exam: CT Abdomen And Pelvis Without Contrast Exam date and time: 10/01/2023 1:25 AM Age: 43 years old Clinical indication: Abdominal pain; Flank; Left; Prior surgery; Surgery date: 6+ months; Surgery type: History of colectomy, partial small bowel resection, and colostomy placement. History of esophagogastroduodenoscopy (egd) (2017); Additional info: Left flank pain TECHNIQUE: Imaging protocol: Computed tomography of the abdomen and pelvis without contrast. Radiation optimization: All CT scans at this facility use at least one of these dose optimization techniques: automated exposure control; mA and/or kV adjustment per patient size (includes targeted exams where dose is matched to clinical indication); or iterative reconstruction. COMPARISON: CT kidney stone [id number] 11/30/2022 8:47 PM RADIATION DOSE METRICS: Total DLP (mGy-cm): 1154 FINDINGS: Lungs: Atelectatic changes in the left lung base. Liver: The liver is diffusely low in attenuation consistent with hepatic steatosis. Gallbladder and bile ducts: Tiny stone in the gallbladder. Pancreas: Normal. No ductal dilation. Spleen: Normal. No splenomegaly. Adrenal glands: Normal. No mass. Kidneys and ureters: There is an obstructing 6 mm stone in the distal left ureter with upstream hydroureter and mild hydronephrosis. Multiple nonobstructing stones in the left kidney measuring up to 6 mm. There is a nonobstructing 5 mm stone in the right kidney. Stomach and bowel: Partial colectomy with Marnie's pouch and left lower quadrant colostomy. Appendix: No evidence of appendicitis. Intraperitoneal space: Unremarkable. No free air. No significant fluid collection. Vasculature: Unremarkable. No abdominal aortic aneurysm. Lymph nodes: Unremarkable. No enlarged lymph nodes. Urinary bladder: Unremarkable as visualized. Reproductive: Unremarkable as visualized. Bones/joints: Unremarkable. No acute fracture. Soft tissues: Unremarkable. CT/CT kidney stone [id number] IMPRESSION: There is an obstructing 6 mm stone in the distal left ureter with upstream hydroureter and mild hydronephrosis.
[2023-10-01 01:09] LABS: Basophils % 0.4 %; Eosinophils # 0.1 10^3/uL (0.0-0.8); Eosinophils % 1.2 %; Hematocrit 41.1 % (37-53); Lymphocytes # 0.8 10^3/uL (0.8-4.8); Lymphocytes % 9.7 %; Mean Corpuscular HGB Conc 32.6 g/dL (30-55); Mean Corpuscular Hemoglobin 28.1 pg (27-33); Mean Corpuscular Volume 86.2 fl (82-101); Mean Platelet Volume 9.1 fL (7.4-10.4); Monocytes # 0.4 10^3/uL (0.2-0.9); Monocytes % 4.6 %; Neutrophils # 7.18 10^3/uL (1.8-7.7); Neutrophils % 83.7 %; Nucleated Red Blood Cells % 0 %; Platelet Count 292 10^3/cmm (157-399); Red Blood Count 4.77 10^6/uL (3.85-5.65); Red Cell Distribution Width 15.8 % (12.1-15.1); White Blood Count 8.56 10^3/uL (3.29-11.43)
[2023-10-01 01:27] LABS: Alanine Aminotransferase 21 U/L (0-41); Albumin Level 3.8 g/dL (3.5-5.2); Alkaline Phosphatase 93 U/L (40-130); Anion Gap 14.2 (5-19); Aspartate Amino Transferase 14 U/L (0-40); Blood Urea Nitrogen 7 mg/dL (6-20); Carbon Dioxide 24 mmol/L (22-29); Chloride 100 mmol/L (98-107); Creatinine Clr Calc Pharmacy 316.4663; Glomerular Filtration Rate 330.4 mL/min (90-130); Glucose 96 mg/dL (65-115); Osmolality Calculated 276 mOsm/kg (285-295); Potassium 4.2 mmol/L (3.5-5.1); Sodium 134 mmol/L (136-145); Total Bilirubin 0.3 mg/dL (0.15-1.2); Total Protein 7.8 g/dL (6.6-8.7)
[2023-10-01] MEDS: tamsulosin 0.4 mg Capsule 0.400000000000000022 MG PO (02:25)
[2023-10-01 02:36] VITALS: BP 139/97; PULSE 79; RESP 16; TEMP 36.6; O2SAT 95
== END 2023-10-01 02:38 | disposition home or self-care (01) ==
PROVIDERS: Emergency Provider Internal Medicine; PCP Internal Medicine
DX: N13.2 Hydronephrosis with renal and ureteral calculous obstruction (principal); D50.9 Iron deficiency anemia, unspecified
CPT/HCPCS: 36415; 74176; 80053; 81003; 85025; 96372; 96374; 96375; 99204; 99285; J1885

== ENCOUNTER 2023-10-13 10:57 | Day surgery (SDC) | payer MEDICAID, SELFPAY ==
[2023-10-13] VITALS (13 sets, daily range): BP systolic 124–158; BP diastolic 74–95; PULSE 76–98; RESP 16–23; TEMP 36.1–36.7; O2SAT 91–98; BMI 36.1
--- NOTE | 2023-10-13 11:05 | XRR_ITS ---
PROCEDURE INFORMATION: Exam: XR Chest Exam date and time: 10/13/2023 1:31 PM Age: 43 years old Clinical indication: Device placement; Other: Postop mediport placement; Prior surgery; Surgery date: Post-operative (0-2 days) TECHNIQUE: Imaging protocol: Radiologic exam of the chest. Views: 1 view. COMPARISON: CR XR chest 1V portable [id number] 12/12/2022 11:24 AM FINDINGS: Tubes, catheters and devices: Central line in place with its tip in the mid SVC. Lungs: Unremarkable. No consolidation. Pleural spaces: No pneumothorax. Heart/Mediastinum: Unremarkable. No cardiomegaly. Bones/joints: Unremarkable. XR/XR chest 1V portable [id number] IMPRESSION: 1. Central line in place with its tip in the mid SVC. 2. No pneumothorax.
--- NOTE | 2023-10-13 11:05 | SC_ITS ---
WS: [id number] INTRAOPERATIVE TECHNIQUE: 1 Spot fluoroscopic images for intraoperative purposes. FLUOROSCOPY TIME: 12.0 seconds CLINICAL INFORMATION: Mediport Placement COMPARISON: None. FINDINGS: RIGHT Port-A-Cath with tip in the mid SVC. IMPRESSION: Images obtained for intraoperative purposes.
--- NOTE | 2023-10-13 11:26 | W.PM.OPSUD ---
Surgery/Procedure H&P Update DATE OF PROCEDURE: October 13, 2023 DATE H&P PERFORMED: 10/01/23 H&P UPDATE INFORMATION: I have reviewed H&P completed within last 30 days, I have examined patient prior to procedure and No changes to prior documentation PLANNED PROCEDURE: Operation Date: 10/13/23 12:40 Proposed Procedures p [id number] port placement I87.8(Not Applicable) - Vince Herrera, DO
[2023-10-13] MEDS: sodium chloride 0.9% 1,000 ML 30 ML IV (11:47)
[2023-10-13] MEDS: vancomycin 1,000 MG in sodium chloride 0.9% 250 ML 250 MG IV (11:47)
[2023-10-13] MEDS: heparin 5,000 unit/mL INJ 1 mL 5000 UNIT SUBCUT (11:50)
--- NOTE | 2023-10-13 11:52 | P.ANESASSM_ITS ---
Pre-Anesthetic Assessment Height/Weight: Height 1.57 m Weight 89.499 kg Temp Pulse Resp BP Pulse Ox O2 Del Method 97.0 F L 76 16 158/95 98 Room Air 10/13/23 11:36 10/13/23 11:36 10/13/23 11:36 10/13/23 11:36 10/13/23 11:36 10/13/23 11:37 Operation Date: 10/13/23 12:40 Proposed Procedures p [id number] port placement I87.8(Not Applicable) - Vince Herrera DO Last intake: Intake Last Liquid Date 10/12/23 Last Liquid Time 23:30 Last Solid Date 01/09/90 Last Solid Time 23:30 Social No alcohol and No tobacco Exam alert, oriented x 3, clear to auscultation bilaterally and regular rate & rhythm Airway Submandibular: within normal limits Cervical ROM: within normal limits Mallampati: Class I GI s/p colostomy in distant past [facility] arthrogryposis Anesthetic Plan ASA status: 3 Anesthesia: MAC Risk of > 500 ml blood loss (7ml/kg in children): No Medications/Allergies Home Medications Medication Instructions Recorded Confirmed Last Taken Type multivitamin 1 tab PO DAILY 08/27/21 10/12/23 10/12/23 History hydrocodone 5 mg-acetaminophen 325 1 tab PO Q8H PRN pain #14 tabs 10/01/23 10/12/23 Unknown Rx mg tablet tamsulosin 0.4 mg capsule (Flomax) 0.4 mg PO DAILY #30 caps 10/01/23 10/12/23 10/12/23 Rx ciprofloxacin 0.3 %-dexamethasone 4 drp otic (ear) BID 10/12/23 10/12/23 10/12/23 History 0.1 % ear drops,suspension (Ciprodex) Allergies Allergy/AdvReac Type Severity Reaction Status Date / Time amoxicillin Allergy Mild Unknown Verified 10/01/23 09:59 Current Medications Generic Name Dose Route Start Last Admin Trade Name Freq PRN Reason Stop Dose Admin Sodium Chloride 1,000 mls @ 30 mls/hr 10/13/23 11:15 10/13/23 11:47 Sodium Chloride 0.9% IV 10/14/23 11:14 30 mls/hr .Q24H KAREN Administration Vancomycin HCl 1,000 mg/ 250 mls @ 250 mls/hr 10/13/23 11:05 10/13/23 11:47 Sodium Chloride IV 10/13/23 12:04 250 mls/hr ONCE ONE Administration Protocol [facility] Anesthesia Medical History History of sigmoidoscopy (2018) GERD (gastroesophageal reflux disease) Arthrogryposis multiplex congenita Recurrent nephrolithiasis CARINA (iron deficiency anemia) Surgical History History of colectomy History of colectomy, partial small bowel resection, and colostomy placement History of esophagogastroduodenoscopy (EGD) (2017) Family History Mother COPD (chronic obstructive pulmonary disease) Social History Smoking and tobacco/nicotine status: never used tobacco/nicotine Alcohol intake: never Household members: spouse Marital status: Current occupational status: disabled Data Anesthesia Cardiac Studies: Echocardiogram Ultrasound 09/07/20
[2023-10-13] MEDS: heparin, porcine 1,000 unit/mL INJ 10 mL 10000 UNIT IRRIGATION (12:50)
[2023-10-13] MEDS: lidocaine-epi 2% PF 1:200,000 20 mL SDV XX (12:50)
--- NOTE | 2023-10-13 13:18 | P.OP_ITS ---
Operative Report Date of procedure: October 13, 2023 Pre-op diagnosis: Poor venous access Post-op diagnosis: same Procedure done: Mediport placement Implants: PowerPort Specimens removed/disposition: None Surgeon: Vince Herrera DO Anesthesia: MAC and Local Complications: None apparent Brief History: This very pleasant 33-year-old gentleman with poor venous access who gets frequent iron infusions. He requested a Mediport which was indicated. The risks and benefits were explained and documented. Procedure: The patient was taken to the operating room and placed supine on the operating room table. All bony prominences were padded. She was given IV sedation and monitored throughout the case by the anesthesia personnel. SCDs were placed and turned on. The arms were tucked to the side. Patient received Ancef 2 g preoperatively IV. The bilateral chest wall was prepped and draped in usual sterile fashion using chlorhexidine base prep. Sterile drapes were applied. We did procedure pause prior to beginning. An 18 gauge needle was placed in the right internal jugular vein under ultr asound guidance. Dark, nonpulsatile blood was aspirated. A guidewire was placed through the needle centrally toward the atrial/vena caval junction. Fluoroscopy visualized good placement. The needle was removed and the guidewire was clipped to the drape with a hemostat. Further local anesthetic was infiltrated in the soft tissues of the right chest wall and a #15 blade was used to make a horizontal skin incision. A subcutaneous Mediport pocket was created using Bovie cautery, dissecting down through the skin and subcutaneous tissues. Meticulous hemostasis was achieved. The Mediport was sutured in position using 3-0 vicryl suture x2 stitches. A #15 blade was used to make a small skin evie around the guidewire insertion area. The Mediport tubing was tunneled through the subcutaneous tissues up to the needle insertion location. A dilator with a peel-away sheath was placed over the guidewire and placed centrally. After measuring the Mediport tubing was cut to length so that the tip would end at the atrial/vena caval junction. The inner cannula and the guidewire were removed, leaving the dilator sheath in place. The Mediport was flushed. The tip of the catheter was inserted through the peel-away sheath and the peel-away sheath removed in the standard fashion. The Mediport was accessed with a straight Patel needle and dark, nonpulsatile blood was aspirated and flushed using heparinized saline to hep-lock the Mediport. Final fluoroscopy visualization showed no kink in the catheter and the tip of the Mediport tubing near the atrial/vena caval junction. Both skin incisions were thoroughly irrigated and suctioned dry. Meticulous hemostasis noted. The dermis was approximated with 3-0 Vicryl in an interrupted fashion. Skin was closed with Dermabond. Patient was awakened from anesthesia and transferred via her cart to the recovery room in stable condition. All needle, sponge, and instrument counts were correct per the operating personnel x2 counts.
--- NOTE | 2023-10-13 14:21 | PC.NURSE ---
1400 - IV pulled out during x ray - anesthesia attempt to restart x2 unsuccessful attempts - Dr Herrera notified per this nurse - order given to start access port per Dr Herrera - see port a cath access intervention
--- NOTE | 2023-10-13 15:50 | ANE.PACU2 ---
Inpatient post-anesthesia follow up: Vital signs: Temperature 97.8 F Pulse Rate 94 Respiratory Rate 18 Blood Pressure 138/74 Pulse Oximetry 94 Oxygen Delivery Me thod Room Air Oxygen Flow Rate Fraction of Inspir ed Oxygen Additional Comments: no anesthetic complications noted
== END 2023-10-13 15:50 | disposition home or self-care (01) ==
PROVIDERS: PCP Internal Medicine; Visit Provider Surgery
PROC: (CPT 36561; principal; 2023-10-13 12:30)
DX: I87.2 Venous insufficiency (chronic) (peripheral) (principal); Z90.49 Acquired absence of other specified parts of digestive tract; K21.9 Gastro-esophageal reflux disease without esophagitis; D50.9 Iron deficiency anemia, unspecified
CPT/HCPCS: 36561; 36415; 71045; 76000; 77001; C1788; J1644; J2250; J2704; J3010; J3370; J7030; J7050

== ENCOUNTER → 2023-11-05 09:16 | Outpatient (BNVA) | payer MEDICAID, SELFPAY | PROVIDERS: PCP Internal Medicine; Visit Provider Surgery | DX: I87.8 Other specified disorders of veins (principal) | CPT/HCPCS: 99214 ==

== ENCOUNTER 2023-11-09 12:56 | Outpatient (CLI) | payer MEDICAID, SELFPAY ==
--- NOTE | 2023-11-09 13:04 | CT_ITS ---
WS: [id number] CT TEMPORAL BONES TECHNIQUE: Noncontrast CT of the temporal bones with coronal and sagittal reformatted images. CLINICAL INFORMATION: OTORRHEA, LEFT EAR/POLYP OF LEFT MIDDLE EAR COMPARISON: None. DLP: 393.[address] scans at [facility] use at least one of these dose optimization techniques: automated e xposure control; mA and/or kV adjustment per patient size (includes targeted exams where dose is matc hed to clinical indication); or iterative reconstruction. FINDINGS: Polypoid mucosal thickening in the paranasal sinuses. Retention cyst or polyp RIGHT maxilla ry sinus measuring 2.9 x 2.5 cm. Small retention cyst or polyp LEFT maxillary sinus measuring 1.8 x 1 .1 cm. Partial visualized ethmoid air cells appear well aerated. Sphenoid sinuses appear well aerated . Mastoid air cells are well aerated. Intracranial vascular calcification. RIGHT: Mild mucosal thickening RIGHT mastoid tip. Cerumen or debris external auditory canal. Ossicles are no rmal in appearance. Middle ear is well aerated. Normal tegmen tympani. Semicircular canals and cochle a are normal in appearance. Prussak's space is normal. Normal inner ear structures. Normal vestibular aqueduct. Facial nerve recess is normal. LEFT: Mild mucosal thickening LEFT mastoid tip. Septation with slight soft tissue thickening external audit ory canal with a small soft tissue nodule measuring 4 mm. Slight retraction of the tympanic membrane. Ossicles are normal in appearance. Middle ear is well aerated. Normal tegmen tympani. Semicircular c anals and cochlea are normal in appearance. Prussak's space is normal. Normal inner ear structures. N ormal vestibular aqueduct. Facial nerve recess is normal. Visualized intracranial contents and posterior fossa are normal. IMPRESSION: 1. Retention cyst or polyps in the maxillary sinuses described above. 2. Mild mucosal thickening in the mastoid tips bilaterally.. 3. Septation with small soft tissue nodule in the bony EAC measuring 4 mm. No evidence of bony erosi on. Scutum appears intact. Recommend direct visualization. 4. Slight retraction of the LEFT tympanic membrane. 5. Partially obstructing cerumen or debris in the RIGHT EAC. Recommend direct visualization. 6. No other suspicious findings.
== END 2023-11-09 12:57 | disposition home or self-care (01) ==
LOC: RAD 12:57
PROVIDERS: PCP Internal Medicine; Visit Provider Specialist
DX: H92.12 Otorrhea, left ear (principal); H74.42 Polyp of left middle ear; Q18.1 Preauricular sinus and cyst; H61.21 Impacted cerumen, right ear
CPT/HCPCS: 70480

== ENCOUNTER 2023-11-12 11:08 | Oncology outpatient (recurring) (ONCR) | payer MEDICAID, SELFPAY | END 2023-12-08 23:59 | disposition home or self-care (01) | PROVIDERS: PCP Internal Medicine; Visit Provider Internal Medicine | DX: Z45.2 Encounter for adjustment and management of vascular access device (principal) | CPT/HCPCS: 36591 ==

== ENCOUNTER 2023-12-18 08:27 | Oncology outpatient (recurring) (ONCR) | payer MEDICAID, SELFPAY ==
[2023-12-18 09:26] LABS: Basophils % 0.4 %; Eosinophils # 0.2 10^3/uL (0.0-0.8); Eosinophils % 2.2 %; Hematocrit 37.8 % (37-53); Lymphocytes # 1.2 10^3/uL (0.8-4.8); Lymphocytes % 15.4 %; Mean Corpuscular HGB Conc 31.2 g/dL (30-55); Mean Corpuscular Hemoglobin 27.6 pg (27-33); Mean Corpuscular Volume 88.3 fl (82-101); Mean Platelet Volume 9.6 fL (7.4-10.4); Monocytes # 0.6 10^3/uL (0.2-0.9); Monocytes % 7.2 %; Neutrophils # 5.68 10^3/uL (1.8-7.7); Neutrophils % 74.3 %; Nucleated Red Blood Cells % 0 %; Platelet Count 270 10^3/cmm (157-399); Red Blood Count 4.28 10^6/uL (3.85-5.65); Red Cell Distribution Width 14.3 % (12.1-15.1); White Blood Count 7.65 10^3/uL (3.29-11.43)
[2023-12-18 09:57] LABS: Alanine Aminotransferase 37 U/L (0-41); Alkaline Phosphatase 90 U/L (40-130); Anion Gap 12.5 (5-19); Aspartate Amino Transferase 20 U/L (0-40); Blood Urea Nitrogen 9 mg/dL (6-20); Calcium 8.6 mg/dL (8.5-10.5); Carbon Dioxide 26 mmol/L (22-29); Chloride 110 mmol/L (98-107); Globulin 3.2 g/dL (1.3-4.6); Glomerular Filtration Rate 183.2 mL/min (90-130); Glucose 115 mg/dL (65-115); Iron 74 ug/dL (59-158); Osmolality Calculated 298 mOsm/kg (285-295); Percent Saturation 28.6 % (20-50); Potassium 4.5 mmol/L (3.5-5.1); Sodium 144 mmol/L (136-145); Total Bilirubin 0.3 mg/dL (0.15-1.2); Total Iron Binding Capacity 258 mcg/dl; Total Protein 7.2 g/dL (6.6-8.7); Unsaturated Iron Binding 184 ug/dL (112-347)
== END 2024-01-08 23:59 | disposition home or self-care (01) ==
PROVIDERS: Internal Medicine Medical Oncology; PCP Internal Medicine; Visit Provider Internal Medicine
DX: D50.9 Iron deficiency anemia, unspecified; Z79.899 Other long term (current) drug therapy; Z95.828 Presence of other vascular implants and grafts
CPT/HCPCS: 36591; 80053; 83540; 83550; 85025; 99213

== ENCOUNTER 2024-01-28 14:15 | Oncology outpatient (recurring) (ONCR) | payer MEDICAID, SELFPAY | END 2024-02-07 23:59 | disposition home or self-care (01) | LOC: ONCMED 14:15 | PROVIDERS: PCP Internal Medicine; Visit Provider Internal Medicine | DX: Z45.2 Encounter for adjustment and management of vascular access device (principal) | CPT/HCPCS: 96523 ==

== ENCOUNTER 2024-02-29 15:27 | Oncology outpatient (recurring) (ONCR) | payer MEDICAID, SELFPAY | END 2024-03-09 23:59 | disposition home or self-care (01) | PROVIDERS: PCP Internal Medicine; Visit Provider Internal Medicine | DX: D50.9 Iron deficiency anemia, unspecified (principal); Z45.2 Encounter for adjustment and management of vascular access device | CPT/HCPCS: 96523 ==

== ENCOUNTER 2024-03-09 01:31 | Emergency (ER) | payer MEDICAID, SELFPAY ==
[2024-03-09] VITALS (9 sets, daily range): BP systolic 100–124; BP diastolic 61–85; PULSE 81–96; RESP 16–18; TEMP 37–37.5; O2SAT 94–98; BMI 36.0
--- NOTE | 2024-03-09 01:50 | ECG_ITS ---
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 Measurements Intervals [place] Rate: 100 P: 24 WA: 140 QRS: 181 QRSD: 96 T: 66 QT: 379 QTc: 489 Interpretive Statements SINUS TACHYCARDIA PATTERN CONSISTENT WITH PULMONARY DISEASE Compared to ECG 12/12/2022 11:25:31 Indeterminate axis no longer present Electronically Signed On 03-09-2024 6:28:59 CDT by Sarahi Hernandez M.D. [id number]
[2024-03-09 02:32] LABS: Basophils % 0.2 %; Eosinophils # 0.1 10^3/uL (0.0-0.8); Eosinophils % 1.5 %; Hematocrit 25.4 % (37-53); Lymphocytes # 1.2 10^3/uL (0.8-4.8); Lymphocytes % 12.3 %; Mean Corpuscular Hemoglobin 18.1 pg (27-33); Mean Corpuscular Volume 69.8 fl (82-101); Mean Platelet Volume 9.6 fL (7.4-10.4); Monocytes # 0.5 10^3/uL (0.2-0.9); Monocytes % 5.3 %; Neutrophils # 7.55 10^3/uL (1.8-7.7); Neutrophils % 80.5 %; Nucleated Red Blood Cells % 0 %; Platelet Count 357 10^3/cmm (157-399); Red Blood Count 3.64 10^6/uL (3.85-5.65); Red Cell Distribution Width 19.9 % (12.1-15.1); White Blood Count 9.38 10^3/uL (3.29-11.43)
[2024-03-09 02:48] LABS: Alanine Aminotransferase 20 U/L (0-41); Albumin Level 3.7 g/dL (3.5-5.2); Alkaline Phosphatase 86 U/L (40-130); Anion Gap 14.7 (5-19); Aspartate Amino Transferase 15 U/L (0-40); Blood Urea Nitrogen 7 mg/dL (6-20); Calcium 9.1 mg/dL (8.5-10.5); Carbon Dioxide 23 mmol/L (22-29); Chloride 106 mmol/L (98-107); Creatinine Clr Calc Pharmacy 470.9595; Globulin 3.2 g/dL (1.3-4.6); Glomerular Filtration Rate 527.5 mL/min (90-130); Glucose 135 mg/dL (65-115); Osmolality Calculated 290 mOsm/kg (285-295); Potassium 3.7 mmol/L (3.5-5.1); Sodium 140 mmol/L (136-145); Total Bilirubin 0.4 mg/dL (0.15-1.2); Total Protein 6.9 g/dL (6.6-8.7)
[2024-03-09 02:55] LABS: Troponin(5th) Baseline 9 ng/L (0-15)
--- NOTE | 2024-03-09 03:50 | ECG_ITS ---
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 Measurements Intervals [place] Rate: 97 P: 52 NM: 140 QRS: 209 QRSD: 113 T: 70 QT: 377 QTc: 479 Interpretive Statements SINUS RHYTHM RIGHT AXIS DEVIATION [QRS AXIS > 100] RIGHT BUNDLE BRANCH BLOCK [120+ ms QRS DURATION, UPRIGHT V1, 40+ ms S IN I/aVL/V4/V5/V6] POSSIBLE ANTERIOR MYOCARDIAL INFARCTION , PROBABLY OLD [30 ms Q WAVE IN V3/V4, OR R < 0.2 mV IN V4] INFERIOR MYOCARDIAL INFARCTION , PROBABLY OLD [40+ ms Q WAVE AND/OR ST/T ABNORMALITY IN II/aVF] Compared to ECG 03/09/2024 01:34:39 Right-axis deviation now present Right bundle-branch block now present Myocardial infarct finding now present Sinus tachycardia no longer present Electronically Signed On 03-09-2024 6:39:22 CDT by Sarahi Hernandez M.D. [id number]
--- NOTE | 2024-03-09 03:53 | ED_ITS ---
HPI - SOB/Dyspnea 2 General: Chief Complaint: Shortness of Breath/Dyspnea Stated Complaint: anemic, neck pain SOB heart palpating Time Seen by Provider: 03/09/24 02:30 History of Present Illness: HPI Narrative: Patient presents to the ER with complaints of anemia. He has been having symptoms such as neck pain headaches, shortness of breath heart palpitations overall body aches. Patient says he routinely is anemic and gets blood transfusions frequently and these are all the of the exact same symptoms he has when he needs a transfusion. Review of Systems 2 General: Reports: 10 or more systems reviewed and unremarkable except in HPI and below PFSH ED 2 PFSH: Medical History History of sigmoidoscopy (2018) GERD (gastroesophageal reflux disease) Arthrogryposis multiplex congenita Recurrent nephrolithiasis CARINA (iron deficiency anemia) Surgical History History of colectomy History of colectomy, partial small bowel resection, and colostomy placement History of esophagogastroduodenoscopy (EGD) (2017) Family History Mother COPD (chronic obstructive pulmonary disease) Social History Smoking and tobacco/nicotine status: unknown if used tobacco/nicotine Alcohol intake: never Household members: spouse Marital status: Current occupational status: disabled Physical Exam 2 Const: COMMON NORMALS: no acute distress, average body habitus, patient oriented x3, no limitations, healthy appearing, alert and well nourished HENMT: COMMON NORMALS: normocephalic, atraumatic, hearing grossly normal bilaterally, external ears normal, Normal external nose present and moist oral mucous membranes HEAD & SCALP: normocephalic and atraumatic NOSE: Normal external nose present EXTERNAL EAR: Yes external ears normal Neck/C-Spine: COMMON NORMALS: full ROM, no lymphadenopathy, supple, no meningeal signs, no JVD and Thyroid normal THYROID: Thyroid normal Chest: COMMONS NORMALS: normal inspection of the chest and normal palpation of entire chest wall Resp: COMMON NORMALS: normal respiratory effort, No retractions, No use of accessory muscles and clear to auscultation bilaterally AUSCULTATION: clear to auscultation bilaterally Cardio: COMMON NORMALS: no JVD, regular rate, regular rhythm, S1 normal heart sound present, S2 normal heart sound present, No gallops present (Cardio), No clicks present (Cardio), No murmurs present (Cardio) and No rub (Cardio) R ATE: regular rate RHYTHM: regular rhythm HEART SOUNDS: S1 normal heart sound present and S2 normal heart sound present GI: COMMON NORMALS: Normal to inspection, nondistended, normoactive bowel sounds present, Soft to palpation, non-tender, No hepatosplenomegaly present and no masses PALPATION: Yes Soft to palpation and Yes No hepatosplenomegaly present Neuro: COMMON NORMALS: patient oriented x3 SENSORIUM/ORIENTATION: Yes alert MENINGEAL SIGNS: Yes no meningeal signs Course 2 Vital Signs: Vital signs: Vital Signs Temperature 99.5 F 03/09/24 04:33 Pulse Rate 95 03/09/24 04:33 Respiratory Rate 18 03/09/24 04:33 Blood Pressure 120/64 03/09/24 04:33 Pulse Oximetry 97 03/09/24 04:33 Oxygen Delivery Me thod Room Air 03/09/24 04:19 MDM - SOB/Dyspnea Medical Decision Making Lab work was obtained which showed the patient had a hemoglobin of 6.6, we will type and screen and transfuse 1 unit of packed red cells. Medical Records I reviewed the patient's medical records. Lab Data I reviewed the patient's lab results. 03/09/24 02:27 03/09/24 02:27 Labs/Radiology: Laboratory Results WBC 9.38 10^3/uL (3.29-11.43) 03/09/24 02:27 RBC 3.64 10^6/uL (3.85-5.65) L 03/09/24 02:27 Hgb 6.60 g/dL (11.27-16.99) L 03/09/24 02:27 Hct 25.4 % (37-53) L 03/09/24 02:27 MCV 69.8 fl (82-101) L 03/09/24 02:27 MCH 18.1 pg (27-33) L 03/09/24 02:27 MCHC 26.0 g/dL (30-55) L 03/09/24 02:27 RDW 19.9 % (12.1-15.1) H 03/09/24 02:27 Plt Count 357 10^3/cmm (157-399) 03/09/24 02:27 MPV 9.6 fL (7.4-10.4) 03/09/24 02:27 Neut % (Auto) 80.5 % 03/09/24 02:27 Lymph % (Auto) 12.3 % 03/09/24 02:27 [place] % (Auto) 5.3 % 03/09/24 02:27 Eos % (Auto) 1.5 % 03/09/24 02:27 Baso % (Auto) 0.2 % 03/09/24 02:27 Neut # (Auto) 7.55 10^3/uL (1.8-7.7) 03/09/24 02:27 Lymph # (Auto) 1.2 10^3/uL (0.8-4.8) 03/09/24 02:27 [place] # (Auto) 0.5 10^3/uL (0.2-0.9) 03/09/24 02:27 Eos # (Auto) 0.1 10^3/uL (0.0-0.8) 03/09/24 02:27 Baso # (Auto) 0.0 10^3/uL (0.0-0.1) 03/09/24 02:27 Nucleated RBC % (auto) 0 % 03/09/24 02:27 Nucleated RBCs # 0.0 /100WBC 03/09/24 02:27 Sodium 140 mmol/L (136-145) 03/09/24 02:27 Potassium 3.7 mmol/L (3.5-5.1) 03/09/24 02:27 Chloride 106 mmol/L (98-107) 03/09/24 02:27 Carbon Dioxide 23 mmol/L (22-29) 03/09/24 02:27 Anion Gap 14.7 (5-19) 03/09/24 02:27 BUN 7 mg/dL (6-20) 03/09/24 02:27 Creatinine 0.2 mg/dL (0.7-1.2) L 03/09/24 02:27 GFR Calculation 527.5 mL/min (90-130) H 03/09/24 02:27 Glucose 135 mg/dL (65-115) H 03/09/24 02:27 Calculated Osmolality 290 mOsm/kg (285-295) 03/09/24 02:27 Calcium 9.1 mg/dL (8.5-10.5) 03/09/24 02:27 Magnesium 2.0 mg/dL (1.7-2.3) 03/09/24 02:27 Total Bilirubin 0.4 mg/dL (0.15-1.2) 03/09/24 02:27 AST 15 U/L (0-40) 03/09/24 02:27 ALT 20 U/L (0-41) 03/09/24 02:27 Alkaline Phosphatase 86 U/L (40-130) 03/09/24 02:27 Troponin T Baseline 9 ng/L (0-15) 03/09/24 02:27 Total Protein 6.9 g/dL (6.6-8.7) 03/09/24 02:27 Albumin 3.7 g/dL (3.5-5.2) 03/09/24 02:27 Globulin 3.2 g/dL (1.3-4.6) 03/09/24 02:27 Blood Type A Positive 03/09/24 02:54 Rho(D) Type Rh positive 03/09/24 02:54 Antibody Screen Negative 03/09/24 02:54 Crossmatch See Detail 03/09/24 02:54 All radiology interpretation(s) finalized by discharge Discharge Plan Discharge Patient Disposition: Home Clinical Impression: Anemia Qualifiers: Anemia type: unspecified type Qualified Code(s): D64.9 - Anemia, unspecified Condition: Stable Prescriptions: No Action multivitamin Tablet 1 tab PO DAILY tamsulosin [Flomax] 0.4 mg capsule 0.4 mg PO DAILY Qty: 30 0RF hydrocodone-acetaminophen 5-325 mg tablet 1 tab PO Q8H PRN (Reason: pain) Qty: 14 0RF Hold Instructions: Resume on 10/16/23. Ciprodex 0.3-0.1 % Drops,Suspension 4 drp OTIC (EAR) BID hydrocodone-acetaminophen 7.5-325 mg tablet 1 tab PO Q6H PRN (Reason: pain) Qty: 10 0RF Colace 100 mg capsule 100 mg PO BID Qty: 14 0RF Discharge Orders: Discharge ED (Routine); Ordered 03/09/24 Ordered By: Hao Saunders Referrals: Edward Laird DO [Primary Care Provider] - 1 week Patient Instructions: Anemia, Blood Transfusion (DC) Activity Restrictions/Additional Instructions: Your hemoglobin was 6.6 upon arrival, you were transfused 1 unit of packed red blood cells. Please follow-up with your family practice physician within the next 7 days for recheck on your hemoglobin. If your symptoms return please feel free to return to the ER. Coding Level of Care Code ED Card Decorator for Malik Richards
== END 2024-03-09 06:35 | disposition home or self-care (01) ==
PROVIDERS: Emergency Provider Emergency Medicine; PCP Internal Medicine
DX: D64.9 Anemia, unspecified (principal)
CPT/HCPCS: 36430; 80053; 83735; 84484; 85025; 86850; 86900; 86920; 93005; 96374; 99284; J1642; P9016

== ENCOUNTER 2024-03-31 12:30 | Oncology outpatient (recurring) (ONCR) | payer MEDICAID, SELFPAY ==
[2024-03-17 13:39] LABS: Basophils % 0.4 %; Eosinophils # 0.2 10^3/uL (0.0-0.8); Eosinophils % 2.2 %; Hematocrit 28.6 % (37-53); Lymphocytes # 1.2 10^3/uL (0.8-4.8); Lymphocytes % 15.3 %; Mean Corpuscular HGB Conc 25.9 g/dL (30-55); Mean Corpuscular Hemoglobin 18.9 pg (27-33); Mean Platelet Volume 9.3 fL (7.4-10.4); Monocytes # 0.6 10^3/uL (0.2-0.9); Monocytes % 7.5 %; Neutrophils % 74.2 %; Nucleated Red Blood Cells % 0 %; Platelet Count 374 10^3/cmm (157-399); Red Blood Count 3.92 10^6/uL (3.85-5.65); Red Cell Distribution Width 21.4 % (12.1-15.1); White Blood Count 7.56 10^3/uL (3.29-11.43)
[2024-03-17 13:53] LABS: Alanine Aminotransferase 25 U/L (0-41); Albumin Level 3.9 g/dL (3.5-5.2); Alkaline Phosphatase 78 U/L (40-130); Anion Gap 12.8 (5-19); Aspartate Amino Transferase 17 U/L (0-40); Blood Urea Nitrogen 8 mg/dL (6-20); Calcium 9.4 mg/dL (8.5-10.5); Carbon Dioxide 25 mmol/L (22-29); Chloride 107 mmol/L (98-107); Ferritin 8 ng/mL (30-400); Globulin 3.4 g/dL (1.3-4.6); Glomerular Filtration Rate 527.5 mL/min (90-130); Glucose 170 mg/dL (65-115); Iron 19 ug/dL (59-158); Osmolality Calculated 294 mOsm/kg (285-295); Percent Saturation 6.3 % (20-50); Potassium 3.8 mmol/L (3.5-5.1); Sodium 141 mmol/L (136-145); Total Bilirubin 0.4 mg/dL (0.15-1.2); Total Iron Binding Capacity 299 mcg/dl; Total Protein 7.3 g/dL (6.6-8.7); Unsaturated Iron Binding 280 ug/dL (112-347)
[2024-03-18] MEDS: acetaminophen 650 mg/20.3 mL UDC PO (08:04)
[2024-03-18] MEDS: sodium chloride 0.9% 250 mL Bag IV (08:05)
[2024-03-18] MEDS: diphenhydrAMINE 50 mg/mL SDV 1mL 25 MG IVP (08:09)
[2024-03-18 08:49] VITALS: BP 111/74; PULSE 94; RESP 17; TEMP 37.2; O2SAT 94
[2024-03-18 09:09] VITALS: BP 118/70; PULSE 100; RESP 16; TEMP 37.1; O2SAT 94
[2024-03-18 09:24] VITALS: BP 108/66; PULSE 99; RESP 16; TEMP 37; O2SAT 94
[2024-03-18 10:39] VITALS: BP 104/65; PULSE 82; RESP 16; TEMP 36.6; O2SAT 95
[2024-03-18 10:47] VITALS: BP 104/65; PULSE 82; RESP 16; TEMP 36.6; O2SAT 95
[2024-03-24] MEDS: ferric carboxy (PYXIS) 750 MG in sodium chloride 0.9% (100 ml) 100 ML 345 MG IV (15:15)
[2024-03-24 15:38] LABS: Basophils # 0.1 10^3/uL (0.0-0.1); Basophils % 0.7 %; Eosinophils # 0.2 10^3/uL (0.0-0.8); Eosinophils % 2.6 %; Hematocrit 32.2 % (37-53); Lymphocytes # 1.3 10^3/uL (0.8-4.8); Lymphocytes % 16.8 %; Mean Corpuscular HGB Conc 26.7 g/dL (30-55); Mean Corpuscular Hemoglobin 19.7 pg (27-33); Mean Corpuscular Volume 73.9 fl (82-101); Monocytes # 0.5 10^3/uL (0.2-0.9); Monocytes % 5.9 %; Neutrophils # 5.64 10^3/uL (1.8-7.7); Neutrophils % 73.7 %; Nucleated Red Blood Cells % 0 %; Platelet Count 423 10^3/cmm (157-399); Red Blood Count 4.36 10^6/uL (3.85-5.65); Red Cell Distribution Width 22.5 % (12.1-15.1); White Blood Count 7.64 10^3/uL (3.29-11.43)
[2024-03-31 12:40] VITALS: BP 116/74; PULSE 72; RESP 18; TEMP 36.7
[2024-03-31] MEDS: ferric carboxy (PYXIS) 750 MG in sodium chloride 0.9% (100 ml) 100 ML 345 MG IV (12:55)
[2024-03-31 13:25] VITALS: BP 136/82; RESP 17; TEMP 35.6
== END 2024-04-09 23:55 | disposition home or self-care (01) ==
PROVIDERS: Nurse Practitioner Family; PCP Internal Medicine; Visit Provider Internal Medicine
DX: Z53.9 Procedure and treatment not carried out, unspecified reason (principal); D50.9 Iron deficiency anemia, unspecified
CPT/HCPCS: 36430; 80053; 82728; 83540; 83550; 85025; 86850; 86900; 86920; 96365; 99214; J1200; J1439; J7050; P9016

== ENCOUNTER 2024-05-05 14:57 | Oncology outpatient (recurring) (ONCR) | payer MEDICAID, SELFPAY ==
[2024-05-05 15:11] LABS: Basophils % 0.4 %; Eosinophils # 0.1 10^3/uL (0.0-0.8); Eosinophils % 1.8 %; Hematocrit 42.2 % (37-53); Lymphocytes # 1.1 10^3/uL (0.8-4.8); Lymphocytes % 14.5 %; Mean Corpuscular Hemoglobin 27.5 pg (27-33); Mean Corpuscular Volume 88.5 fl (82-101); Mean Platelet Volume 8.8 fL (7.4-10.4); Monocytes # 0.3 10^3/uL (0.2-0.9); Monocytes % 4.3 %; Neutrophils # 6.05 10^3/uL (1.8-7.7); Neutrophils % 78.6 %; Nucleated Red Blood Cells % 0 %; Platelet Count 268 10^3/cmm (157-399); Red Blood Count 4.77 10^6/uL (3.85-5.65); Red Cell Distribution Width 21.3 % (12.1-15.1)
[2024-05-05 15:32] LABS: Alanine Aminotransferase 46 U/L (0-41); Albumin Level 3.9 g/dL (3.5-5.2); Alkaline Phosphatase 96 U/L (40-130); Anion Gap 14.8 (5-19); Aspartate Amino Transferase 26 U/L (0-40); Blood Urea Nitrogen 8 mg/dL (6-20); Calcium 9.5 mg/dL (8.5-10.5); Carbon Dioxide 25 mmol/L (22-29); Chloride 102 mmol/L (98-107); Ferritin 139 ng/mL (30-400); Globulin 3.3 g/dL (1.3-4.6); Glomerular Filtration Rate 527.5 mL/min (90-130); Glucose 166 mg/dL (65-115); Iron 72 ug/dL (59-158); Osmolality Calculated 288 mOsm/kg (285-295); Percent Saturation 34.9 % (20-50); Potassium 3.8 mmol/L (3.5-5.1); Sodium 138 mmol/L (136-145); Total Bilirubin 0.4 mg/dL (0.15-1.2); Total Iron Binding Capacity 206 mcg/dl; Total Protein 7.2 g/dL (6.6-8.7); Unsaturated Iron Binding 134 ug/dL (112-347)
== END 2024-05-09 23:59 | disposition home or self-care (01) ==
LOC: ONCMED 14:57
PROVIDERS: Nurse Practitioner Family; PCP Internal Medicine; Visit Provider Internal Medicine
DX: D50.9 Iron deficiency anemia, unspecified
CPT/HCPCS: 36591; 80053; 82728; 83540; 83550; 85025

== ENCOUNTER 2024-06-29 10:30 | Oncology outpatient (recurring) (ONCR) | payer MEDICAID, SELFPAY ==
[2024-06-16 12:34] LABS: Basophils % 0.4 %; Eosinophils # 0.2 10^3/uL (0.0-0.8); Eosinophils % 2.7 %; Hematocrit 42.9 % (37-53); Lymphocytes # 1.1 10^3/uL (0.8-4.8); Lymphocytes % 15.2 %; Mean Corpuscular HGB Conc 31.7 g/dL (30-55); Mean Corpuscular Hemoglobin 28.9 pg (27-33); Mean Corpuscular Volume 91.3 fl (82-101); Mean Platelet Volume 9.8 fL (7.4-10.4); Monocytes # 0.4 10^3/uL (0.2-0.9); Monocytes % 5.3 %; Neutrophils % 76.1 %; Nucleated Red Blood Cells % 0 %; Platelet Count 255 10^3/cmm (157-399); Red Cell Distribution Width 14.2 % (12.1-15.1); White Blood Count 7.49 10^3/uL (3.29-11.43)
[2024-06-16 12:51] LABS: Alanine Aminotransferase 44 U/L (0-41); Albumin Level 3.8 g/dL (3.5-5.2); Alkaline Phosphatase 104 U/L (40-130); Anion Gap 12.8 (5-19); Aspartate Amino Transferase 20 U/L (0-40); Blood Urea Nitrogen 7 mg/dL (6-20); Calcium 9.2 mg/dL (8.5-10.5); Carbon Dioxide 25 mmol/L (22-29); Chloride 106 mmol/L (98-107); Creatinine Clr Calc Pharmacy 470.9595; Ferritin 61 ng/mL (30-400); Globulin 2.5 g/dL (1.3-4.6); Glomerular Filtration Rate 527.5 mL/min (90-130); Glucose 221 mg/dL (65-115); Iron 49 ug/dL (59-158); Osmolality Calculated 295 mOsm/kg (285-295); Percent Saturation 22.2 % (20-50); Potassium 3.8 mmol/L (3.5-5.1); Sodium 140 mmol/L (136-145); Total Bilirubin 0.2 mg/dL (0.15-1.2); Total Iron Binding Capacity 220 mcg/dl; Total Protein 6.3 g/dL (6.6-8.7); Unsaturated Iron Binding 171 ug/dL (112-347)
== END 2024-07-09 23:59 | disposition home or self-care (01) ==
PROVIDERS: Nurse Practitioner Family; PCP Internal Medicine; Visit Provider Internal Medicine
DX: Z53.9 Procedure and treatment not carried out, unspecified reason; D50.9 Iron deficiency anemia, unspecified; Z95.828 Presence of other vascular implants and grafts; Z93.3 Colostomy status; Q74.3 Arthrogryposis multiplex congenita; Z99.3 Dependence on wheelchair; Z79.899 Other long term (current) drug therapy
CPT/HCPCS: 36591; 80053; 82728; 83540; 83550; 85025; 96523; 99213

== ENCOUNTER 2024-07-27 10:03 | Oncology outpatient (recurring) (ONCR) | payer MEDICAID, SELFPAY | END 2024-08-09 23:59 | disposition home or self-care (01) | PROVIDERS: PCP Internal Medicine; Visit Provider Internal Medicine | DX: Z45.2 Encounter for adjustment and management of vascular access device (principal) ==

== ENCOUNTER 2024-09-19 10:15 | Oncology outpatient (recurring) (ONCR) | payer MEDICAID, SELFPAY ==
[2024-09-19 10:35] LABS: Basophils % 0.4 %; Eosinophils # 0.2 10^3/uL (0.0-0.8); Eosinophils % 1.9 %; Hematocrit 44.2 % (37-53); Lymphocytes # 1.1 10^3/uL (0.8-4.8); Lymphocytes % 13.2 %; Mean Corpuscular HGB Conc 32.1 g/dL (30-55); Mean Corpuscular Volume 90.4 fl (82-101); Mean Platelet Volume 9.4 fL (7.4-10.4); Monocytes # 0.4 10^3/uL (0.2-0.9); Monocytes % 4.2 %; Neutrophils # 6.68 10^3/uL (1.8-7.7); Neutrophils % 79.8 %; Nucleated Red Blood Cells % 0 %; Platelet Count 257 10^3/cmm (157-399); Red Blood Count 4.89 10^6/uL (3.85-5.65); Red Cell Distribution Width 13.6 % (12.1-15.1); White Blood Count 8.36 10^3/uL (3.29-11.43)
[2024-09-19 11:04] LABS: Alanine Aminotransferase 31 U/L (0-41); Albumin Level 3.9 g/dL (3.5-5.2); Alkaline Phosphatase 100 U/L (40-130); Anion Gap 14.5 (5-19); Aspartate Amino Transferase 19 U/L (0-40); Blood Urea Nitrogen 9 mg/dL (6-20); Calcium 9.9 mg/dL (8.5-10.5); Carbon Dioxide 25 mmol/L (22-29); Chloride 106 mmol/L (98-107); Ferritin 80 ng/mL (30-400); Globulin 3.4 g/dL (1.3-4.6); Glomerular Filtration Rate 527.5 mL/min (90-130); Glucose 168 mg/dL (65-115); Iron 51 ug/dL (59-158); Lactate Dehydrogenase 112 U/L (135-225); Osmolality Calculated 297 mOsm/kg (285-295); Percent Saturation 21.7 % (20-50); Potassium 3.5 mmol/L (3.5-5.1); Sodium 142 mmol/L (136-145); Total Bilirubin 0.5 mg/dL (0.15-1.2); Total Iron Binding Capacity 234 mcg/dl; Total Protein 7.3 g/dL (6.6-8.7); Unsaturated Iron Binding 183 ug/dL (112-347)
[2024-09-19 11:19] LABS: Vitamin B12 407 pg/mL (232-1245)
[2024-09-19 12:18] LABS: Folate Level 9.2 ng/mL (4.5-32.2)
== END 2024-10-07 23:59 | disposition home or self-care (01) ==
LOC: ONCMED 10:15
PROVIDERS: Internal Medicine; PCP Internal Medicine; Visit Provider Internal Medicine
DX: D50.9 Iron deficiency anemia, unspecified (principal)
CPT/HCPCS: 36591; 80053; 82607; 82728; 82746; 83540; 83550; 83615; 85025

== ENCOUNTER 2024-10-26 10:23 | Oncology outpatient (recurring) (ONCR) | payer MEDICAID, SELFPAY ==
[2024-10-26 11:19] LABS: Basophils % 0.6 %; Eosinophils # 0.2 10^3/uL (0.0-0.8); Eosinophils % 2.6 %; Hematocrit 44.4 % (37-53); Lymphocytes % 16.1 %; Mean Corpuscular HGB Conc 32.2 g/dL (30-55); Mean Corpuscular Hemoglobin 29.3 pg (27-33); Mean Platelet Volume 10.1 fL (7.4-10.4); Monocytes # 0.4 10^3/uL (0.2-0.9); Monocytes % 5.4 %; Neutrophils # 4.85 10^3/uL (1.8-7.7); Nucleated Red Blood Cells % 0 %; Platelet Count 296 10^3/cmm (157-399); Red Blood Count 4.88 10^6/uL (3.85-5.65); Red Cell Distribution Width 13.5 % (12.1-15.1); White Blood Count 6.47 10^3/uL (3.29-11.43)
[2024-10-26 11:39] LABS: Alanine Aminotransferase 50 U/L (0-41); Albumin Level 3.9 g/dL (3.5-5.2); Alkaline Phosphatase 109 U/L (40-130); Anion Gap 12.6 (5-19); Aspartate Amino Transferase 31 U/L (0-40); Blood Urea Nitrogen 9 mg/dL (6-20); Calcium 9.5 mg/dL (8.5-10.5); Carbon Dioxide 25 mmol/L (22-29); Chloride 106 mmol/L (98-107); Ferritin 48 ng/mL (30-400); Glucose 176 mg/dL (65-115); Iron 60 ug/dL (59-158); Lactate Dehydrogenase 152 U/L (135-225); Osmolality Calculated 293 mOsm/kg (285-295); Percent Saturation 24.5 % (20-50); Potassium 3.6 mmol/L (3.5-5.1); Sodium 140 mmol/L (136-145); Total Bilirubin 0.4 mg/dL (0.15-1.2); Total Iron Binding Capacity 244 mcg/dl; Total Protein 6.9 g/dL (6.6-8.7); Unsaturated Iron Binding 184 ug/dL (112-347)
[2024-10-26 11:54] LABS: Vitamin B12 411 pg/mL (232-1245)
[2024-10-26 12:00] LABS: Folate Level 5.6 ng/mL (4.5-32.2)
== END 2024-11-07 23:59 | disposition home or self-care (01) ==
PROVIDERS: PCP Internal Medicine; Visit Provider Internal Medicine
DX: D50.9 Iron deficiency anemia, unspecified (principal); Z95.828 Presence of other vascular implants and grafts; Z93.3 Colostomy status; Q74.3 Arthrogryposis multiplex congenita
CPT/HCPCS: 36591; 80053; 82607; 82728; 82746; 83540; 83550; 83615; 85025; 99213

== ENCOUNTER 2024-11-15 16:13 | Emergency (ER) | payer MEDICAID, SELFPAY ==
[2024-11-15] VITALS (7 sets, daily range): BP systolic 110–142; BP diastolic 46–80; PULSE 77–100; RESP 20; TEMP 36.8; O2SAT 91–96
--- NOTE | 2024-11-15 17:10 | CTR_ITS ---
PROCEDURE INFORMATION: Exam: CT Abdomen And Pelvis Without Contrast Exam date and time: 11/15/2024 6:28 PM Age: 44 years old Clinical indication: Pain; Other: Flank; Colostomy; Additional info: Flank pain TECHNIQUE: Imaging protocol: Computed tomography of the abdomen and pelvis without contrast. Axial, coronal and sagittal reformatted images were created and reviewed. Radiation optimization: All CT scans at this facility use at least one of these dose optimization techniques: automated exposure control; mA and/or kV adjustment per patient size (includes targeted exams where dose is matched to clinical indication); or iterative reconstruction. COMPARISON: CT kidney stone [id number] 10/01/2023 1:25 AM RADIATION DOSE METRICS: Total DLP (mGy-cm): 1211.71 FINDINGS: Lungs: Subsegmental consolidation at the left lung base, likely due to atelectasis. Heart: Small pericardial effusion. Diaphragm: Large hiatal hernia with intrathoracic stomach. Liver: Mild hepatomegaly. Diffuse hepatic steatosis. Gallbladder and biliary ducts: Mild gallbladder distension without radiodense gallstones. Pancreas: Unremarkable. Spleen: Unremarkable. Adrenal glands: Normal. No mass. Kidneys and ureters: 1.9 cm exophytic left renal cyst (no follow-up is indicated based on the imaging appearance). Nonobstructing bilateral renal calculi. No hydronephrosis. Stomach and bowel: Evidence of prior partial colectomy and left lower quadrant colostomy. Scattered colonic diverticula without evidence of diverticulitis. No obstruction. No bowel wall thickening. No pneumatosis. Appendix: Normal. Intraperitoneal space: No free fluid. No organized fluid collection. No free air. Vasculature: Unremarkable. No aneurysm. Lymph nodes: No pathologically enlarged lymph nodes. Urinary bladder: Unremarkable as visualized. Reproductive: Unremarkable. Bones/joints: No acute osseous abnormality. Osteopenia. Mild degenerative changes. Soft tissues: Unremarkable. CT/CT kidney stone [id number] IMPRESSION: 1. Limited noncontrast examination without CT evidence of acute intra-abdominal or pelvic pathology. 2. Additional findings, as above. COMMENTS: Consistent with the [employer]'s Incidental Findings Committee white paper (J Am Vidhya Radiol 2018): Any incidental renal lesion less than 1 cm or classified as too small to characterize, or any incidental cystic renal lesion characterized as simple-appearing, is likely benign. No follow-up imaging is recommended for these lesions per consensus recommendations based on imaging criteria.
--- NOTE | 2024-11-15 17:19 | ED_ITS ---
HPI - Male Genitourinary 2 General: Chief complaint: Urogenital-Male Stated complaint: back pain Time Seen by Provider: 11/15/24 16:50 Source: patient Mode of arrival: ambulatory Limitations: no limitations History of Present Illness: 44-year-old male states he had a history of kidney stone in the past states he woke up this morning with flank pain bilaterally states been a sharp pain in his lower back rates a 9 out of 10 he had some slight blood in his urine as well states this feels like his previous kidney stones denies any vomiting denies any fevers. Denies any worse improved factors Associated symptoms: Deny nausea or vomiting Related Data Home Medications ?Medication ?Instructions ?Recorded ?Confirmed multivitamin 1 tab PO DAILY 08/27/2110/08 ciprofloxacin 0.3 %-dexamethasone 4 drp otic (ear) BID 10/12/23 10/26/24 0.1 % ear drops,suspension (Ciprodex) Previous Rx's ?Medication ?Instructions ?Recorded hydrocodone 5 mg-acetaminophen 325 1 tab PO Q8H PRN pa in #14 tabs 10/01/23 mg tablet Held on 10/13/23. Instructions: Resume on 10/16/23. tamsulosin 0.4 mg capsule (Flomax) 0.4 mg PO DAILY #30 caps 10/01/23 docusate sodium 100 mg capsule 100 mg PO BID #14 caps 10/13/23 (Colace) hydrocodone 7.5 mg-acetaminophen 1 tab PO Q6H PRN pain #10 tabs 10/13/23 325 mg tablet Allergies Allergy/AdvReac Type Severity Reaction Status Date / Time amoxicillin Allergy Mild Unknown Verified 11/15/24 16:36 Review of Systems 2 Const: Denies: fever(s), chills, body aches or change in appetite ENMT: Denies: throat pain or dental pain Card: Denies: chest pain Resp: Denies: dyspnea GI: Denies: abdominal pain, nausea, vomiting or diarrhea : Reports: flank pain Musc: Reports: back pain; Denies: neck pain Skin/Breast: Denies: rash Neuro: Denies: headache(s) PFSH ED 2 PFSH: Medical History History of sigmoidoscopy (2018) GERD (gastroesophageal reflux disease) Arthrogryposis multiplex congenita Recurrent nephrolithiasis CARINA (iron deficiency anemia) Surgical History History of colectomy History of colectomy, partial small bowel resection, and colostomy placement History of esophagogastroduodenoscopy (EGD) (2017) Family History Mother COPD (chronic obstructive pulmonary disease) Social History Smoking and tobacco/nicotine status: never used tobacco/nicotine Alcohol intake: never Household members: spouse Marital status: Current occupational status: disabled Physical Exam 2 Const: COMMON NORMALS: no acute distress and patient oriented x3 HENMT: COMMON NORMALS: normocephalic and atraumatic HEAD & SCALP: n ormocephalic and atraumatic Eye: COMMON NORMALS: conjunctivae normal CONJUNCTIVA: Yes conjunctivae normal Neck/C-Spine: COMMON NORMALS: full ROM and supple Chest: COMMONS NORMALS: normal inspection of the chest Resp: COMMON NORMALS: normal respiratory effort, No retractions, No use of accessory muscles and clear to auscultation bilaterally AUSCULTATION: clear to auscultation bilaterally Cardio: COMMON NORMALS: regular rate, regular rhythm and No murmurs present (Cardio) RATE: regular rate RHYTHM: regular rhythm GI: COMMON NORMALS: Normal to inspection, nondistended, normoactive bowel sounds present, Soft to palpation, non-tender and no masses PALPATION: Yes Soft to palpation Extremity: COMMON NORMALS: normal to inspection and full ROM Neuro: COMMON NORMALS: patient oriented x3, moves all extremities and no focal motor deficits Psych: COMMON NORMALS: mental status grossly normal, Normal thought process present and cooperative THOUGHT PROCESS: Normal thought process present Skin: COMMON NORMALS: no rashes or lesions noted and no wounds GENERAL SKIN EXAM: no rashes or lesions noted Course 2 Vital Signs: Vital signs: Vital Signs Temperature 98.2 F 11/15/24 16:30 Pulse Rate 96 11/15/24 19:00 Respiratory Rate 20 H 11/15/24 19:00 Blood Pressure 117/58 11/15/24 19:00 Pulse Oximetry 91 11/15/24 19:00 Oxygen Delivery Me thod Nasal Cannula 04/08/25 19:00 Oxygen Flow Rate 2 11/15/24 19:00 MDM - Male Medical Decision Making Patient presents with back pains likely muscular in nature CT showed no acute findings blood work urinalysis is normal he stable for discharge follow-up PCP return if worsening. Medical Records I reviewed the patient's medical records. Lab Data I reviewed the patient's lab results. 11/15/24 17:35 11/15/24 17:35 Radiology Impressions Abdomen/Pelvis CT 11/15/24 17:10 IMPRESSION: 1. Limited noncontrast examination without CT evidence of acute intra-abdominal or pelvic pathology. 2. Additional findings, as above. COMMENTS: Consistent with the [employer]'s Incidental Findings Committee white paper (J Am Vidhya Radiol 2018): Any incidental renal lesion less than 1 cm or classified as too small to characterize, or any incidental cystic renal lesion characterized as simple-appearing, is likely benign. No follow-up imaging is recommended for these lesions per consensus recommendations based on imaging criteria. Laboratory Results WBC 8.35 10^3/uL (3.29-11.43) 11/15/24 17:35 RBC 5.10 10^6/uL (3.85-5.65) 11/15/24 17:35 Hgb 15.10 g/dL (11.27-16.99) 11/15/24 17:35 Hct 44.5 % (37-53) 11/15/24 17:35 MCV 87.3 fl (82-101) 11/15/24 17:35 MCH 29.6 pg (27-33) 11/15/24 17:35 MCHC 33.9 g/dL (30-55) 11/15/24 17:35 RDW 13.4 % (12.1-15.1) 11/15/24 17:35 Plt Count 276 10^3/cmm (157-399) 11/15/24 17:35 MPV 10.0 fL (7.4-10.4) 11/15/24 17:35 Neut % (Auto) 90.5 % 11/15/24 17:35 Lymph % (Auto) 5.4 % 11/15/24 17:35 [place] % (Auto) 3.4 % 11/15/24 17:35 Eos % (Auto) 0.1 % 11/15/24 17:35 Baso % (Auto) 0.2 % 11/15/24 17:35 Neut # (Auto) 7.56 10^3/uL (1.8-7.7) 11/15/24 17:35 Lymph # (Auto) 0.5 10^3/uL (0.8-4.8) L 11/15/24 17:35 [place] # (Auto) 0.3 10^3/uL (0.2-0.9) 11/15/24 17:35 Eos # (Auto) 0.0 10^3/uL (0.0-0.8) 11/15/24 17:35 Baso # (Auto) 0.0 10^3/uL (0.0-0.1) 11/15/24 17:35 Nucleated RBC % (auto) 0 % 11/15/24 17:35 Nucleated RBCs # 0.0 /100WBC 11/15/24 17:35 Sodium 138 mmol/L (136-145) 11/15/24 17:35 Potassium 4.4 mmol/L (3.5-5.1) 11/15/24 17:35 Chloride 104 mmol/L (98-107) 11/15/24 17:35 Carbon Dioxide 24 mmol/L (22-29) 11/15/24 17:35 Anion Gap 14.4 (5-19) 11/15/24 17:35 BUN 8 mg/dL (6-20) 11/15/24 17:35 Creatinine 0.2 mg/dL (0.7-1.2) L 11/15/24 17:35 GFR Calculation 525.0 mL/min (90-130) H 11/15/24 17:35 Glucose 234 mg/dL (65-115) H 11/15/24 17:35 Calculated Osmolality 292 mOsm/kg (285-295) 11/15/24 17:35 Calcium 9.7 mg/dL (8.5-10.5) 11/15/24 17:35 Total Bilirubin 1.6 mg/dL (0.15-1.2) H 11/15/24 17:35 AST 298 U/L (0-40) H 11/15/24 17:35 ALT 231 U/L (0-41) H 11/15/24 17:35 Alkaline Phosphatase 141 U/L (40-130) H 11/15/24 17:35 Total Protein 7.8 g/dL (6.6-8.7) 11/15/24 17:35 Albumin 4.1 g/dL (3.5-5.2) 11/15/24 17:35 Globulin 3.7 g/dL (1.3-4.6) 11/15/24 17:35 Lipase 39 U/L (13-60) 11/15/24 17:35 Urine Color Yellow (Yellow) 11/15/24 18:40 Urine Appearance Clear (CLEAR) 11/15/24 18:40 Urine pH 6 (5-7) 11/15/24 18:40 Ur Specific [place] 1.015 (1.005-1.030) 11/15/24 18:40 Urine Protein Neg (Negative) 11/15/24 18:40 Urine Glucose (UA) 4+ (Normal) H 11/15/24 18:40 Urine Ketones Negative (Negative) 11/15/24 18:40 Urine Blood 2+ (Negative) H 11/15/24 18:40 Urine Nitrate Negative (Negative) 11/15/24 18:40 Urine Bilirubin 1+ (Negative) H 11/15/24 18:40 Urine Urobilinogen 8 mg/dL (Negative) H 11/15/24 18:40 Ur Leukocyte Esterase Negative (Negative) 11/15/24 18:40 Urine RBC 6-10 /hpf (0-2) 11/15/24 18:40 Urine WBC 0-5 /hpf (0-5) 11/15/24 18:40 Ur Squamous Epith Cells 0-5 /hpf (0-5) 11/15/24 18:40 Amorphous Sediment Not Reportable 11/15/24 18:40 Urine Bacteria None seen /hpf (NONE) 11/15/24 18:40 Hyaline Casts 0.81 /lpf 11/15/24 18:40 All radiology interpretation(s) finalized by discharge Discharge Plan Discharge Patient Disposition: Home Clinical Impression: Back pain Condition: Stable Prescriptions: No Action multivitamin Tablet 1 tab PO DAILY tamsulosin [Flomax] 0.4 mg capsule 0.4 mg PO DAILY Qty: 30 0RF hydrocodone-acetaminophen 5-325 mg tablet 1 tab PO Q8H PRN (Reason: pain) Qty: 14 0RF Ciprodex 0.3-0.1 % Drops,Suspension 4 drp OTIC (EAR) BID hydrocodone-acetaminophen 7.5-325 mg tablet 1 tab PO Q6H PRN (Reason: pain) Qty: 10 0RF Colace 100 mg capsule 100 mg PO BID Qty: 14 0RF Discharge Orders: Discharge ED (Routine); Ordered 11/15/24 Ordered By: Dexter Villarreal Discharge Diet: Advance as tolerated Discharge Activity: Resume usual activity Patient Instructions: Back Pain (ED) Print Language: Tamazight Coding Level of Care Code ED Molder [employer] Rubber for Malik Richards
[2024-11-15] MEDS: HYDROmorphone 0.5 MG/0.5 ML INJ 1 MG IVP (17:48)
[2024-11-15] MEDS: ondansetron 2 mg/ML SDV 2 mL 4 MG IVP (17:48)
[2024-11-15 17:59] LABS: Basophils % 0.2 %; Eosinophils % 0.1 %; Hematocrit 44.5 % (37-53); Lymphocytes # 0.5 10^3/uL (0.8-4.8); Lymphocytes % 5.4 %; Mean Corpuscular HGB Conc 33.9 g/dL (30-55); Mean Corpuscular Hemoglobin 29.6 pg (27-33); Mean Corpuscular Volume 87.3 fl (82-101); Monocytes # 0.3 10^3/uL (0.2-0.9); Monocytes % 3.4 %; Neutrophils # 7.56 10^3/uL (1.8-7.7); Neutrophils % 90.5 %; Nucleated Red Blood Cells % 0 %; Platelet Count 276 10^3/cmm (157-399); Red Cell Distribution Width 13.4 % (12.1-15.1); White Blood Count 8.35 10^3/uL (3.29-11.43)
[2024-11-15 18:13] LABS: Alanine Aminotransferase 231 U/L (0-41); Albumin Level 4.1 g/dL (3.5-5.2); Alkaline Phosphatase 141 U/L (40-130); Anion Gap 14.4 (5-19); Aspartate Amino Transferase 298 U/L (0-40); Blood Urea Nitrogen 8 mg/dL (6-20); Calcium 9.7 mg/dL (8.5-10.5); Carbon Dioxide 24 mmol/L (22-29); Chloride 104 mmol/L (98-107); Creatinine Clr Calc Pharmacy 466.2023; Globulin 3.7 g/dL (1.3-4.6); Glucose 234 mg/dL (65-115); Lipase 39 U/L (13-60); Osmolality Calculated 292 mOsm/kg (285-295); Potassium 4.4 mmol/L (3.5-5.1); Sodium 138 mmol/L (136-145); Total Bilirubin 1.6 mg/dL (0.15-1.2); Total Protein 7.8 g/dL (6.6-8.7)
[2024-11-15 19:16] LABS: Bacteria Urine None Seen /hpf; Hyaline Casts Urine 0.81 /lpf; Squamous Epithelial Cell Urine 0-5 /hpf (0-5); WBC Urine 0-5 /hpf (0-5)
[2024-11-15 19:39] LABS: Add Urine Microscopic? YES; Bilirubin Urine 1+ (Negative); Blood Urine 2+ (Negative); Glucose Urine UA 4+ (Normal); Ketones Urine Negative (Negative); Leukocyte Esterase Urine Negative (Negative); Nitrate Urine Negative (Negative); Protein Urine Neg (Negative); Specific Gravity, Urine 1.015 (1.005-1.030); Urine Appearance Clear (CLEAR); Urine Color Yellow (Yellow); Urobilinogen Urine 8 mg/dL (Negative); pH Urine 6 (5-7)
== END 2024-11-15 20:38 | disposition home or self-care (01) ==
PROVIDERS: Emergency Provider Emergency Medicine
DX: M54.9 Dorsalgia, unspecified (principal)
CPT/HCPCS: 74176; 80053; 81001; 83690; 85025; 96374; 96375; 99285; J1171; J1642; J2405

== ENCOUNTER 2024-12-28 10:15 | Oncology outpatient (recurring) (ONCR) | payer MEDICAID, SELFPAY | END 2025-01-07 23:59 | disposition home or self-care (01) | LOC: ONCMED 10:16 | PROVIDERS: Visit Provider Internal Medicine | DX: Z45.2 Encounter for adjustment and management of vascular access device (principal) | CPT/HCPCS: 96523 ==

== ENCOUNTER 2025-02-09 12:58 | Oncology outpatient (recurring) (ONCR) | payer MEDICAID, SELFPAY ==
[2025-02-09 13:42] LABS: Hematocrit 41.6 % (37-53); Hemoglobin 13.50 g/dL (11.27-16.99); Mean Corpuscular HGB Conc 32.5 g/dL (30-55); Mean Corpuscular Hemoglobin 28.5 pg (27-33); Mean Corpuscular Volume 87.9 fl (82-101); Nucleated Red Blood Cells % 0 %; Platelet Count 254 10^3/cmm (157-399); Red Blood Count 4.73 10^6/uL (3.85-5.65); White Blood Count 6.33 10^3/uL (3.29-11.43)
[2025-02-09 14:21] LABS: Alanine Aminotransferase 25 U/L (0-41); Albumin Level 3.8 g/dL (3.5-5.2); Alkaline Phosphatase 103 U/L (40-130); Anion Gap 14.1 (5-19); Aspartate Amino Transferase 17 U/L (0-40); Blood Urea Nitrogen 9 mg/dL (6-20); Calcium 9.6 mg/dL (8.5-10.5); Carbon Dioxide 24 mmol/L (22-29); Chloride 105 mmol/L (98-107); Ferritin 30 ng/mL (30-400); Globulin 3.2 g/dL (1.3-4.6); Glucose 108 mg/dL (65-115); Iron 61 ug/dL (59-158); Osmolality Calculated 287 mOsm/kg (285-295); Potassium 4.1 mmol/L (3.5-5.1); Sodium 139 mmol/L (136-145); Total Iron Binding Capacity 276 mcg/dl; Total Protein 7.0 g/dL (6.6-8.7); Unsaturated Iron Binding 215 ug/dL (112-347); Vitamin B12 376 pg/mL (232-1245)
== END 2025-03-09 23:59 | disposition home or self-care (01) ==
PROVIDERS: Visit Provider Internal Medicine
DX: D50.9 Iron deficiency anemia, unspecified (principal); R03.0 Elevated blood-pressure reading, without diagnosis of hypertension; Z95.828 Presence of other vascular implants and grafts; Z93.3 Colostomy status
CPT/HCPCS: 36591; 80053; 82607; 82728; 82746; 83010; 83540; 83550; 83615; 85025; 85045; 99214

== ENCOUNTER 2025-03-23 14:04 | Oncology outpatient (recurring) (ONCR) | payer MEDICAID, SELFPAY ==
[2025-03-23 14:33] LABS: Hematocrit 39.0 % (37-53); Hemoglobin 12.40 g/dL (11.27-16.99); Mean Corpuscular HGB Conc 31.8 g/dL (30-55); Mean Corpuscular Hemoglobin 27.1 pg (27-33); Mean Corpuscular Volume 85.2 fl (82-101); Nucleated Red Blood Cells % 0 %; Platelet Count 261 10^3/cmm (157-399); Red Blood Count 4.58 10^6/uL (3.85-5.65); White Blood Count 5.79 10^3/uL (3.29-11.43)
[2025-03-23 14:47] LABS: Alanine Aminotransferase 27 U/L (0-41); Albumin Level 3.9 g/dL (3.5-5.2); Alkaline Phosphatase 110 U/L (40-130); Anion Gap 15.2 (5-19); Aspartate Amino Transferase 22 U/L (0-40); Blood Urea Nitrogen 12 mg/dL (6-20); Calcium 9.5 mg/dL (8.5-10.5); Carbon Dioxide 24 mmol/L (22-29); Chloride 104 mmol/L (98-107); Globulin 3.1 g/dL (1.3-4.6); Glucose 132 mg/dL (65-115); Iron 31 ug/dL (59-158); Osmolality Calculated 290 mOsm/kg (285-295); Potassium 4.2 mmol/L (3.5-5.1); Sodium 139 mmol/L (136-145); Total Iron Binding Capacity 286 mcg/dl; Total Protein 7.0 g/dL (6.6-8.7); Unsaturated Iron Binding 255 ug/dL (112-347)
== END 2025-04-09 23:59 | disposition home or self-care (01) ==
LOC: ONCMED 14:04
PROVIDERS: Nurse Practitioner; Visit Provider Internal Medicine
DX: D50.9 Iron deficiency anemia, unspecified (principal); I87.8 Other specified disorders of veins
CPT/HCPCS: 36591; 80053; 83540; 83550; 85025

== ENCOUNTER 2025-04-20 14:10 | Oncology outpatient (recurring) (ONCR) | payer MEDICAID, SELFPAY ==
[2025-04-20 14:35] LABS: Hematocrit 40.0 % (37-53); Hemoglobin 12.50 g/dL (11.27-16.99); Mean Corpuscular HGB Conc 31.3 g/dL (30-55); Mean Corpuscular Hemoglobin 26.0 pg (27-33); Mean Corpuscular Volume 83.2 fl (82-101); Nucleated Red Blood Cells % 0 %; Platelet Count 262 10^3/cmm (157-399); Red Blood Count 4.81 10^6/uL (3.85-5.65); White Blood Count 5.80 10^3/uL (3.29-11.43)
[2025-04-20 14:54] LABS: Alanine Aminotransferase 24 U/L (0-41); Albumin Level 3.9 g/dL (3.5-5.2); Alkaline Phosphatase 110 U/L (40-130); Anion Gap 12.9 (5-19); Aspartate Amino Transferase 17 U/L (0-40); Blood Urea Nitrogen 9 mg/dL (6-20); Calcium 9.6 mg/dL (8.5-10.5); Carbon Dioxide 25 mmol/L (22-29); Chloride 106 mmol/L (98-107); Creatinine Clr Calc Pharmacy 0; Ferritin 15 ng/mL (30-400); Globulin 3.4 g/dL (1.3-4.6); Glucose 141 mg/dL (65-115); Iron 45 ug/dL (59-158); Osmolality Calculated 291 mOsm/kg (285-295); Potassium 3.9 mmol/L (3.5-5.1); Sodium 140 mmol/L (136-145); Total Iron Binding Capacity 300 mcg/dl; Total Protein 7.3 g/dL (6.6-8.7); Unsaturated Iron Binding 255 ug/dL (112-347)
== END 2025-05-09 23:59 | disposition home or self-care (01) ==
PROVIDERS: Nurse Practitioner Family; Visit Provider Internal Medicine
DX: D50.9 Iron deficiency anemia, unspecified (principal); R03.0 Elevated blood-pressure reading, without diagnosis of hypertension; Z95.828 Presence of other vascular implants and grafts; G82.50 Quadriplegia, unspecified
CPT/HCPCS: 36591; 80053; 82728; 82746; 83540; 83550; 85025; 99214

== ENCOUNTER 2025-06-08 14:43 | Oncology outpatient (recurring) (ONCR) | payer MEDICAID, SELFPAY ==
[2025-06-08 15:29] LABS: Hematocrit 39.8 % (37-53); Hemoglobin 12.40 g/dL (11.27-16.99); Mean Corpuscular HGB Conc 31.2 g/dL (30-55); Mean Corpuscular Hemoglobin 25.4 pg (27-33); Mean Corpuscular Volume 81.4 fl (82-101); Nucleated Red Blood Cells % 0 %; Platelet Count 270 10^3/cmm (157-399); Red Blood Count 4.89 10^6/uL (3.85-5.65); White Blood Count 6.11 10^3/uL (3.29-11.43)
[2025-06-08 15:49] LABS: Alanine Aminotransferase 30 U/L (0-41); Albumin Level 3.7 g/dL (3.5-5.2); Alkaline Phosphatase 112 U/L (40-130); Anion Gap 13.8 (5-19); Aspartate Amino Transferase 20 U/L (0-40); Blood Urea Nitrogen 9 mg/dL (6-20); Calcium 9.3 mg/dL (8.5-10.5); Carbon Dioxide 23 mmol/L (22-29); Chloride 104 mmol/L (98-107); Ferritin 11 ng/mL (30-400); Globulin 3.7 g/dL (1.3-4.6); Glucose 165 mg/dL (65-115); Iron 38 ug/dL (59-158); Osmolality Calculated 286 mOsm/kg (285-295); Potassium 3.8 mmol/L (3.5-5.1); Sodium 137 mmol/L (136-145); Total Iron Binding Capacity 296 mcg/dl; Total Protein 7.4 g/dL (6.6-8.7); Unsaturated Iron Binding 258 ug/dL (112-347)
== END 2025-06-09 23:59 | disposition home or self-care (01) ==
LOC: ONCMED 14:44
PROVIDERS: Nurse Practitioner Family; Visit Provider Internal Medicine
DX: E61.1 Iron deficiency (principal)
CPT/HCPCS: 36415; 36591; 80053; 82728; 83540; 83550; 85025

== ENCOUNTER 2025-07-13 13:39 | Oncology outpatient (recurring) (ONCR) | payer MEDICAID, SELFPAY ==
[2025-07-13 13:56] LABS: Hematocrit 37.1 % (37-53); Hemoglobin 11.50 g/dL (11.27-16.99); Mean Corpuscular HGB Conc 31.0 g/dL (30-55); Mean Corpuscular Hemoglobin 24.8 pg (27-33); Mean Corpuscular Volume 80.1 fl (82-101); Nucleated Red Blood Cells % 0 %; Platelet Count 246 10^3/cmm (157-399); Red Blood Count 4.63 10^6/uL (3.85-5.65); White Blood Count 6.86 10^3/uL (3.29-11.43)
[2025-07-13 14:09] LABS: Alanine Aminotransferase 23 U/L (0-41); Albumin Level 4.0 g/dL (3.5-5.2); Alkaline Phosphatase 110 U/L (40-130); Anion Gap 11.8 (5-19); Aspartate Amino Transferase 17 U/L (0-40); Blood Urea Nitrogen 11 mg/dL (6-20); Calcium 9.7 mg/dL (8.5-10.5); Carbon Dioxide 25 mmol/L (22-29); Chloride 105 mmol/L (98-107); Globulin 3.2 g/dL (1.3-4.6); Glucose 133 mg/dL (65-115); Osmolality Calculated 287 mOsm/kg (285-295); Potassium 3.8 mmol/L (3.5-5.1); Sodium 138 mmol/L (136-145); Total Protein 7.2 g/dL (6.6-8.7)
[2025-07-13 15:14] LABS: Ferritin 8 ng/mL (30-400)
[2025-07-13 15:39] LABS: Iron 70 ug/dL (59-158); Total Iron Binding Capacity 294 mcg/dl; Unsaturated Iron Binding 224 ug/dL (112-347)
== END 2025-08-09 23:59 | disposition home or self-care (01) ==
PROVIDERS: Nurse Practitioner Family; Visit Provider Internal Medicine
DX: D50.9 Iron deficiency anemia, unspecified (principal); R03.0 Elevated blood-pressure reading, without diagnosis of hypertension; G82.50 Quadriplegia, unspecified; L98.8 Other specified disorders of the skin and subcutaneous tissue; Z93.3 Colostomy status; Z95.828 Presence of other vascular implants and grafts
CPT/HCPCS: 36591; 80053; 82728; 83540; 83550; 85025; 99213